=== PATIENT | male | born 1955 | race American Indian/Alaskan Native ===

== ENCOUNTER 2017-05-04 21:55 | Emergency (ER) | payer OTHER ==
[2017-05-04 22:34] LABS: Basophils % (Auto) 0.4 % (0.0-1.8); Eosinophils # (Auto) 0.1 K/mm3 (0.0-0.4); Eosinophils % (Auto) 1.5 % (0.0-4.3); Hemoglobin 15.1 gm/dl (11.8-15.2); Lymphocytes # (Auto) 2.5 K/mm3 (1.2-5.4); Lymphocytes % (Auto) 44.8 % (13.4-35.0); Mean Corpuscular HGB Conc 34 % (32-34); Mean Corpuscular Hemoglobin 31 pg (28-32); Mean Corpuscular Volume 94 fl (84-94); Monocytes # (Auto) 0.7 K/mm3 (0.0-0.8); Monocytes % (Auto) 12.2 % (0.0-7.3); Platelet Count 174 K/mm3 (140-440); Red Blood Count 4.81 M/mm3 (3.65-5.03); Red Cell Distribution Width 14.3 % (13.2-15.2)
[2017-05-04 22:53] LABS: Alanine Aminotransferase 24 units/L (7-56); Albumin 4.1 g/dL (3.9-5); BUN/Creatinine Ratio 15; Blood Urea Nitrogen 17 mg/dL (9-20); Calcium 9.2 mg/dL (8.4-10.2); Hemolysis Index 6
--- NOTE | 2017-05-05 00:29 | XRay Report ---
FINAL REPORT PROCEDURE: XR KNEE 3V LT TECHNIQUE: LEFT knee radiographs, AP, lateral and oblique views. CPT 32681 HISTORY: knee injury COMPARISON: No prior studies are available for comparison. FINDINGS: Fracture (s) and/or Dislocation(s): None . Alignment: Normal . Joint space(s): Mild narrowing of the joint spaces. Moderate spur formation off the osseous structures.. Soft tissues: Normal . Bone mineralization: Normal . Foreign bodies: None . IMPRESSION: No evidence of an acute fracture. Moderate arthritis.
[2017-05-05] MEDS ORDERED: TYLENOL PO ONE (12:03)
[2017-05-05] MEDS ORDERED: NAPROSYN PO ONE (13:00)
--- NOTE | 2017-05-05 13:23 | Emergency Department Report ---
ED General Adult HPI - General Chief complaint: Extremity Problem,Nontraumatic Stated complaint: FALL,LEFT KNEE PAIN Time Seen by Provider: 05/05/17 11:53 Source: patient Mode of arrival: Ambulatory Limitations: No Limitations - History of Present Illness Initial comments: Pt is a 61M no significant pmhx who presents with left knee pain that occurred last week. Pt is stating that his knee pain is a 7/10 that pain walking makes the pain worse and resting makes it better. Patient fell and was able to walk without any difficulty. Patient states that pain was gradual. Pt states that the reason that he is in the emergency department today is to "See what's going on." Because he sometimes has pain but he has been ambulatory without any assistance. Severity scale (0 -10): 7 - Related Data Previous Rx's Medication Instructions Recorded Last Taken Type Diclofenac Sodium [Voltaren] 100 gm TP Q6H PRN #1 gel..gram. 05/05/17 Unknown Rx Allergies Allergy/AdvReac Type Severity Reaction Status Date / Time No Known Allergies Allergy Verified 05/04/17 22:09 ED Review of Systems ROS: Stated complaint: FALL,LEFT KNEE PAIN Other details as noted in HPI Constitutional: denies: chills, fever Eyes: denies: eye pain, eye discharge, vision change ENT: denies: ear pain, throat pain Respiratory: denies: cough, shortness of breath, wheezing Cardiovascular: denies: chest pain, palpitations Endocrine: no symptoms reported Gastrointestinal: denies: abdominal pain, nausea, diarrhea Genitourinary: denies: urgency, dysuria Musculoskeletal: other (knee pain ). denies: back pain, joint swelling, arthralgia Skin: denies: rash, lesions Neurological: denies: headache, weakness, paresthesias Psychiatric: denies: anxiety, depression Hematological/Lymphatic: denies: easy bleeding, easy bruising ED Past Medical Hx - Past Medical History Previous Medical History?: No - Surgical History Past Surgical History?: No - Social History Smoking Status: Current Every Day Smoker Substance Use Type: None - Medications Home Medications: Home Medications Medication Instructions Recorded Confirmed Last Taken Type Diclofenac Sodium [Voltaren] 100 gm TP Q6H PRN #1 gel..gram. 05/05/17 Unknown Rx ED Physical Exam - General Limitations: No Limitations General appearance: alert, in no apparent distress - Head Head exam: Present: atraumatic, normocephalic - Eye Eye exam: Present: normal appearance - ENT ENT exam: Present: mucous membranes moist - Neck Neck exam: Present: normal inspection - Respiratory Respiratory exam: Present: normal lung sounds bilaterally. Absent: respiratory distress - Cardiovascular Cardiovascular Exam: Present: regular rate, normal rhythm. Absent: systolic murmur, diastolic murmur, rubs, gallop - GI/Abdominal GI/Abdominal exam: Present: soft, normal bowel sounds - Rectal Rectal exam: Present: deferred - Extremities Exam Extremities exam: Present: normal inspection, other (no point tenderness ) - Back Exam Back exam: Present: normal inspection - Neurological Exam Neurological exam: Present: alert, oriented X3 - Psychiatric Psychiatric exam: Present: normal affect, normal mood - Skin Skin exam: Present: warm, dry, intact, normal color. Absent: rash ED Course Vital Signs 05/04/17 05/05/17 05/05/17 22:09 12:00 12:21 Temperature 99.5 F 98.5 F Pulse Rate 86 72 Respiratory 16 20 20 Rate Blood Pressure 176/98 Blood Pressure 171/106 [Left] Blood Pressure 186/106 [Right] O2 Sat by Pulse 98 99 99 Oximetry ED Medical Decision Making - Lab Data Result diagrams: 05/04/17 22:15 05/04/17 22:15 Lab Results 05/04/17 05/04/17 Range/Units 22:15 22:15 WBC 5.6 (4.5-11.0) K/mm3 RBC 4.81 (3.65-5.03) M/mm3 Hgb 15.1 (11.8-15.2) gm/dl Hct 45.0 (35.5-45.6) % MCV 94 (84-94) fl MCH 31 (28-32) pg MCHC 34 (32-34) % RDW 14.3 (13.2-15.2) % Plt Count 174 (140-440) K/mm3 Lymph % (Auto) 44.8 H (13.4-35.0) % [place] % (Auto) 12.2 H (0.0-7.3) % Eos % (Auto) 1.5 (0.0-4.3) % Baso % (Auto) 0.4 (0.0-1.8) % Lymph # 2.5 (1.2-5.4) K/mm3 [place] # 0.7 (0.0-0.8) K/mm3 Eos # 0.1 (0.0-0.4) K/mm3 Baso # 0.0 (0.0-0.1) K/mm3 Seg Neutrophils % 41.1 (40.0-70.0) % Seg Neutrophils # 2.3 (1.8-7.7) K/mm3 Sodium 140 (137-145) mmol/L Potassium 4.2 (3.6-5.0) mmol/L Chloride 100.6 (98-107) mmol/L Carbon Dioxide 29 (22-30) mmol/L Anion Gap 15 mmol/L BUN 17 (9-20) mg/dL Creatinine 1.1 (0.8-1.5) mg/dL Estimated GFR > 60 ml/min BUN/Creatinine Ratio 15 % Glucose 94 (75-100) mg/dL Calcium 9.2 (8.4-10.2) mg/dL Total Bilirubin 0.30 (0.1-1.2) mg/dL AST 19 (5-40) units/L ALT 24 (7-56) units/L Alkaline Phosphatase 82 (35-129) units/L Total Protein 6.9 (6.3-8.2) g/dL Albumin 4.1 (3.9-5) g/dL Albumin/Globulin Ratio 1.5 % - Radiology Data Radiology results: report reviewed, image reviewed Left Knee xray: shows no acute osseous injury - Medical Decision Making Cdx: patella fracture ddx: ACL sprain, Quadraceps tendon sprain I will get blood work, xray of knee and pain medication. Patient's xray and blood work is unremarkable I will send patient home to f/u with PCP and will wrap pt's knee with an leora bandage. Discussed plan with patient and patient agrees with plan additional verbal discharge instructions were given. Critical care attestation.: If time is entered above; I have spent that time in minutes in the direct care of this critically ill patient, excluding procedure time. ED Disposition Clinical Impression: Knee pain Qualifiers: Chronicity: acute Laterality: left Qualified Code(s): M25.562 - Pain in left knee Disposition: - TO HOME OR SELFCARE Is pt being admited?: No Does the pt Need Aspirin: No Condition: Stable Prescriptions: Diclofenac Sodium [Voltaren] 100 gm TP Q6H PRN #1 gel..gram. PRN Reason: Pain Referrals: PRIMARY CARE,MD [Primary Care Provider] - 3-5 Days
[2017-05-05 13:47] VITALS: BP 168/109
== END 2017-05-05 13:44 | disposition home or self-care (01) ==
LOC: ED 21:55
DX: M25.562 Pain in left knee (principal); F17.200 Nicotine dependence, unspecified, uncomplicated
CPT/HCPCS: 36415; 80053; 85025; 99284

== ENCOUNTER 2019-02-06 23:49 | Inpatient (IN) | payer MEDICARE ==
[2019-02-07 00:29] LABS: Basophils # (Auto) 0.1 K/mm3 (0.0-0.1); Hematocrit 34.8 % (35.5-45.6); Hemoglobin 11.8 gm/dl (11.8-15.2); Lymphocytes # (Auto) 0.9 K/mm3 (1.2-5.4); Lymphocytes % (Auto) 13.7 % (13.4-35.0); Mean Corpuscular HGB Conc 34 % (32-34); Mean Corpuscular Volume 91 fl (84-94); Monocytes # (Auto) 0.8 K/mm3 (0.0-0.8); Monocytes % (Auto) 11.8 % (0.0-7.3); Platelet Count 207 K/mm3 (140-440); Red Blood Count 3.81 M/mm3 (3.65-5.03); Red Cell Distribution Width 14.2 % (13.2-15.2)
[2019-02-07 00:49] LABS: Calcium 8.2 mg/dL (8.4-10.2)
--- NOTE | 2019-02-07 02:02 | XRay Report ---
CHEST 1 VIEW INDICATION / CLINICAL INFORMATION: dyspnea. COMPARISON: None available. FINDINGS: SUPPORT DEVICES: None. HEART / MEDIASTINUM: Heart size is normal with left ventricular configuration. The thoracic aorta is slightly tortuous. LUNGS / PLEURA: No significant pulmonary or pleural abnormality. No pneumothorax. ADDITIONAL FINDINGS: No significant additional findings. IMPRESSION: 1. No acute findings. Signer Name: George Arreola MD Signed: 02/07/2019 1:58 AM Workstation Name: [id number]
[2019-02-07 02:03] LABS: Bilirubin,Urine NEG (Negative); Blood,Urine LG (Negative); Color,Urine Yellow (Yellow); Mucus,Urine FEW /HPF; Protein,Urine <15 mg/dL mg/dL (Negative); Urobilinogen,Urine < 2.0 mg/dL (<2.0)
--- NOTE | 2019-02-07 02:21 | Emergency Department Report ---
ED Male HPI - General Chief complaint: Urogenital-Male Stated complaint: UNABLE TO URINATE/BURNING PAIN Source: patient Mode of arrival: Ambulatory Limitations: No Limitations - History of Present Illness Initial comments: Patient is a 63-year-old -[place] male with a history of hypertension and BPH and status post prostate biopsy by Dr. Bhatt 5 days ago who presents to the ED with component of acute onset persistent severe suprapubic pressure and urinary retention for the last 8 hours. Patient states that he tried to void naturally but was unable to, and has had just small dribbles of urine. Patient states that the suprapubic pressure has worsened in the last 6 hours. Patient also complains of persistent elevated blood pressure for the last 8 hours. Patient states that he has been taking blood pressure medication before 2 months having being diagnosed with hypertension at an urgent care clinic 2 months ago. Patient denies chest pain, shortness of breath, dizziness, headache, syncope, change in vision, abdominal pain, dysuria, hematuria, fever, chills, cough, diarrhea, change in vision or headache MD Complaint: other (Pelvic pressure; urinary retention) -: Sudden, hour(s) (8) Location: abdomen (suprapubic pressure) Radiation: none Severity: severe Severity scale (0 -10): 7 Quality: other (pressure) Consistency: constant Improves with: none Worsens with: none recent surgery (Suprapubic pressure) urinary retention, other (suprapubic pressure) - Related Data Sexually active: No Home Medications Medication Instructions Recorded Confirmed Last Taken Tamsulosin [Flomax] 1 tab PO DAILY 02/07/19 02/07/19 Unknown Allergies Allergy/AdvReac Type Severity Reaction Status Date / Time No Known Allergies Allergy Verified 05/04/17 22:09 ED Review of Systems ROS: Stated complaint: UNABLE TO URINATE/BURNING PAIN Other details as noted in HPI Constitutional: denies: chills, fever Eyes: denies: eye pain, eye discharge, vision change ENT: denies: ear pain, throat pain Respiratory: denies: cough, shortness of breath, wheezing Cardiovascular: denies: chest pain, palpitations Endocrine: no symptoms reported Gastrointestinal: abdominal pain (suprapubic pressure). denies: nausea, vomiting, diarrhea, constipation, hematemesis Genitourinary: other (urinary retention). denies: urgency, dysuria Musculoskeletal: denies: back pain, joint swelling, arthralgia Skin: denies: rash, lesions Neurological: denies: headache, weakness, paresthesias Psychiatric: denies: anxiety, depression Hematological/Lymphatic: denies: easy bleeding, easy bruising ED Past Medical Hx - Past Medical History Previous Medical History?: Yes Hx Hypertension: Yes - Surgical History Past Surgical History?: Yes Additional Surgical History: Prostate biopsy - Social History Smoking Status: Never Smoker - Medications Home Medications: Home Medications Medication Instructions Recorded Confirmed Last Taken Type Tamsulosin [Flomax] 1 tab PO DAILY 02/07/19 02/07/19 Unknown History ED Physical Exam - General Limitations: No Limitations General appearance: alert, in no apparent distress - Head Head exam: Present: atraumatic, normocephalic, normal inspection - Eye Eye exam: Present: normal appearance, PERRL, EOMI Pupils: Present: normal accommodation - ENT ENT exam: Present: normal exam, normal orophraynx, mucous membranes moist, TM's normal bilaterally, normal external ear exam - Neck Neck exam: Present: normal inspection, full ROM - Respiratory Respiratory exam: Present: normal lung sounds bilaterally. Absent: respiratory distress, wheezes, rales, chest wall tenderness, accessory muscle use, prolonged expiratory - Cardiovascular Cardiovascular Exam: Present: regular rate, normal rhythm, normal heart sounds. Absent: systolic murmur, diastolic murmur, rubs, gallop - GI/Abdominal GI/Abdominal exam: Present: soft, tenderness (Suprapubic pressure), normal bowel sounds. Absent: guarding, rebound, hyperactive bowel sounds, hypoactive bowel sounds, organomegaly - Rectal Rectal exam: Present: deferred - Extremities Exam Extremities exam: Present: normal inspection, full ROM, normal capillary refill - Back Exam Back exam: Present: normal inspection, full ROM. Absent: CVA tenderness (L), muscle spasm, paraspinal tenderness - Neurological Exam Neurological exam: Present: alert, oriented X3, CN II-XII intact, normal gait, reflexes normal - Psychiatric Psychiatric exam: Present: normal affect, normal mood - Skin Skin exam: Present: warm, dry, intact, normal color. Absent: rash ED Course Vital Signs 02/06/19 02/07/19 02/07/19 23:56 01:41 03:20 Temperature 98.8 F 98.2 F Pulse Rate 93 H 99 H 93 H Respiratory 18 13 21 Rate Blood Pressure 177/93 198/133 Blood Pressure 202/106 198/133 [Left] O2 Sat by Pulse 99 99 97 Oximetry - Reevaluation(s) Reevaluation #1: 02/07/19 03:21 This is a 63-year-old male with a history of hypertension and BPH who presented to the ED with acute urinary retention and elevated blood pressure. In the ED, patient is alert and oriented 3, anxious but in no acute distress. Initial lab test results showed BUN of 78 and creatinine of 14.4 and hyponatremia 131 mmol per liter. Chest x-ray shows no acute cardiopulmonary abnormalities or pneumonitis. A [place]l catheter was initially inserted and the patient to leave his retention. Initial urine output was 1900 mL. The patient case was discussed with the ED attending physician Dr. Otero who advised that the patient's Urologist Dr. Bhatt be paged. I discussed that the patient's case with Dr. Bhatt, his urologist who advised that the patient be admitted to the hospital for further evaluation. He suggested an Abdomen Pelvis CT scan w/o contrast be performed. The hospitalist physician on-call Dr. Sorensen was also paged and he admitted the patient into the hospital for further evaluation. The abdomen pelvis CT scan without contrast shows bilateral hydronephrosis most l ikely due to bladder outlet obstruction caused by enlargement of the prostate. It also shows pandiverticulosis as well as left perinephric retroperitoneal stranding may be on the basis of the hydronephrosis or possible nephritis/pyelonephritis. 02/07/19 03:28 ED Medical Decision Making - Lab Data Result diagrams: 02/07/19 00:13 02/07/19 00:13 - Radiology Data Radiology results: report reviewed, image reviewed Findings [facility] [address] [place] [address] Cat Scan Report Signed Patient: DARIEN LO MR#: [id number] : 1955 Acct:[id number] Age/Sex: 63 / M ADM Date: 02/06/19 Loc: ED Attending Dr: Ordering Physician: RIC WADSWORTH Date of Service: 02/07/19 Procedure(s): CT abdomen pelvis wo con Accession Number(s): [id number] cc: RIC WADSWORTH CT abdomen pelvis wo con INDICATION / CLINICAL INFORMATION: Pelvic pain. TECHNIQUE: All CT scans at this location are performed using CT dose reduction for ALARA by means of automated exposure control. COMPARISON: None available. FINDINGS: Limited lower thoracic images are negative. ABDOMEN: The gallbladder and biliary ductal structures are normal. Small cyst is seen in the right lobe of the liver. No other hepatic abnormality. The spleen and pancreas are normal. Both adrenal glands are slightly prominent without discrete mass. There is bilateral hydronephrosis and dilatation of both ureters. Perinephric stranding is noted around the left kidney. Diverticulosis of both right and left colon is seen without evidence of diverticulitis. Pelvis: The prostate gland is markedly enlarged. A [place]l catheter is positioned within the urinary bladder. Urinary bladder wall is thickened. No evidence of ureteral or bladder calculi. No blastic or osteolytic lesions. IMPRESSION: 1. Bilateral hydronephrosis most likely due to bladder outlet obstruction caused by enlargement of the prostate. 2. Pandiverticulosis. 3. Left perinephric retroperitoneal stranding may be on the basis of the hydronephrosis or possible nephritis/pyelonephritis. Signer Name: George Arreola MD Signed: 02/07/2019 3:00 AM Workstation Name: [id number] Transcribed By: ROSSY Dictated By: George Arreola MD Electronically Authenticated By: George Arreola MD Signed Date/Time: 02/07/19299 DD/ 0254 TD/TT: - Medical Decision Making This is a 63-year-old male with a history of hypertension and BPH who presented to the ED with acute urinary retention and elevated blood pressure. In the ED, patient is alert and oriented 3, anxious but in no acute distress. Initial lab test results showed BUN of 78 and creatinine of 14.4 and hyponatremia 131 mmol per liter. Chest x-ray shows no acute cardiopulmonary abnormalities or pneumonitis. A [place]l catheter was initially inserted and the patient to leave his retention. Initial urine output was 1900 mL. The patient case was discussed with the ED attending physician Dr. Otero who advised that the patient's Urologist Dr. Bhatt be paged. I discussed that the patient's case with Dr. Bhatt, his urologist who advised that the patient be admitted to the hospital for further evaluation. He suggested an Abdomen Pelvis CT scan w/o contrast be performed. The hospitalist physician on-call Dr. Sorensen was also paged and he admitted the patient into the hospital for further evaluation. The abdomen pelvis CT scan without contrast shows bilateral hydronephrosis most likely due to bladder outlet obstruction caused by enlargement of the prostate. It also shows pandiverticulosis as well as left perinephric retroperitoneal stranding may be on the basis of the hydronephrosis or possible nephritis/pyelonephritis. - Differential Diagnosis Urinary retention; Acute Renal Failure; Hypertensive Emergency Critical care attestation.: If time is entered above; I have spent that time in minutes in the direct care of this critically ill patient, excluding procedure time. ED Disposition Clinical Impression: Acute urinary retention, Hypertensive emergency Acute renal failure (ARF) Qualifiers: Acute renal failure type: unspecified Qualified Code(s): N17.9 - Acute kidney failure, unspecified Disposition: OP ADMIT IP TO THIS HOSP Is pt being admited?: Yes Does the pt Need Aspirin: Yes Condition: Stable Instructions: Hypertension (ED) Time of Disposition: 02:38 Print Language: SLOVAK
[2019-02-07] MEDS ORDERED: MORPHINE IV PRN (02:39)
[2019-02-07] MEDS ORDERED: SODIUM CHLORIDE FLUSH SYRINGE 10 ML IV PRN (02:39)
[2019-02-07] MEDS ORDERED: TYLENOL PO PRN (02:39)
[2019-02-07] MEDS ORDERED: ZOFRAN IV PRN (02:39)
[2019-02-07] MEDS ORDERED: ASPIRIN PO ONE (02:47)
--- NOTE | 2019-02-07 02:49 | History and Physical Report ---
History of Present Illness Date of examination: 02/07/19 Date of admission: 02/07/2019 Chief complaint: Pelvic pressure, urinary retention History of present illness: 63-year-old Sudanese Sudanese male with history of hypertension and BPH S/P prostate biopsy (02/02/19) who presents to [facility] ED with complaints of progressively worsening suprapubic pressure and urinary retention for the past day. Patient states that he had a prostate biopsy done on 02/02/19 by . He was given oral antibiotics and has completed the course of treatment. Post biopsy patient noticed he blood in his urine, which improved with each void, and was completely resolved by day 3. On Friday he was unable to void and was just having small drips of urine. Patient tried to press on his abdomen in hopes that it would help him to void. The suprapubic pain and pres sure continued to worsen and he called his urologist. He was advised to go to the ED for further evaluation and treatment. Patient states that he is been compliant with medications. Denies: chest pain, SOB, fever, chills, headache, dizziness, hematochezia, hematuria Past History Past Medical History: hypertension, other (BPH) Past Surgical History: Other (prostate biopsy) Social history: lives with family Family history: no significant family history Medications and Allergies Allergies Allergy/AdvReac Type Severity Reaction Status Date / Time No Known Allergies Allergy Verified 05/04/17 22:09 Home Medications Medication Instructions Recorded Confirmed Last Taken Type Tamsulosin [Flomax] 1 tab PO DAILY 02/07/19 02/07/19 Unknown History Active Meds: Active Medications Acetaminophen (Tylenol) 650 mg PO Q4H PRN PRN Reason: Pain MILD(1-3)/Fever >100.5/STEARNS Enoxaparin Sodium (Lovenox) 40 mg SUB-Q QDAY DYLAN Morphine Sulfate (Morphine) 2 mg IV Q4H PRN PRN Reason: Pain, Moderate (4-6) Ondansetron HCl (Zofran) 4 mg IV Q6H PRN PRN Reason: Nausea And Vomiting Sodium Chloride (Sodium Chloride Flush Syringe 10 Ml) 10 ml IV BID DYLAN Sodium Chloride (Sodium Chloride Flush Syringe 10 Ml) 10 ml IV PRN PRN PRN Reason: LINE FLUSH Review of Systems All systems: negative Cardiovascular: high blood pressure, leg edema Genitourinary Male: urinary retention, other (suprapubic pressure) Exam - Physical Exam Narrative exam: Physical exam General appearance: Present: No acute distress, alert and oriented 3, well developed, pleasant, adult -Sudanese male - EENT Eyes: Present: PERRL, EOM intact, ENT: hearing intact, normal dentition - Neck Neck: Present: supple, normal ROM - Respiratory Respiratory effort: Non-labored Respiratory: CTA - Cardiovascular Heart rate: 90 (bpm) Rhythm: SR Heart Sounds: Present: S1, S2 - Extremities Extremities: no ischemia, pulses intact, bilateral lower extremity 2+ pitting edema - Peripheral Assessment Peripheral Pulses: within normal limits - Abdominal General gastrointestinal: soft, slight tenderness to suprapubic area, normal bowel sounds - Integumentary Integumentary: Present: warm, dry, - Musculoskeletal Musculoskeletal: Able to move all extremities, normal gait -Neurological Neurological: CN II-XII grossly intact - Psychiatric Psychiatric: cooperative - Constitutional Vitals: Temp Pulse Resp BP Pulse Ox 98.2 F 99 H 13 202/106 99 02/07/19 01:41 02/07/19 01:41 02/07/19 01:41 02/07/19 01:41 02/07/19 01:41 Results - Labs CBC & Chem 7: 02/07/19 00:13 02/07/19 00:13 Labs: Laboratory Last Values WBC 6.8 K/mm3 (4.5-11.0) 02/07/19 00:13 RBC 3.81 M/mm3 (3.65-5.03) 02/07/19 00:13 Hgb 11.8 gm/dl (11.8-15.2) 02/07/19 00:13 Hct 34.8 % (35.5-45.6) L 02/07/19 00:13 MCV 91 fl (84-94) 02/07/19 00:13 MCH 31 pg (28-32) 02/07/19 00:13 MCHC 34 % (32-34) 02/07/19 00:13 RDW 14.2 % (13.2-15.2) 02/07/19 00:13 Plt Count 207 K/mm3 (140-440) 02/07/19 00:13 Lymph % (Auto) 13.7 % (13.4-35.0) 02/07/19 00:13 [place] % (Auto) 11.8 % (0.0-7.3) H 02/07/19 00:13 Eos % (Auto) 0.0 % (0.0-4.3) 02/07/19 00:13 Baso % (Auto) 1.0 % (0.0-1.8) 02/07/19 00:13 Lymph # 0.9 K/mm3 (1.2-5.4) L 02/07/19 00:13 [place] # 0.8 K/mm3 (0.0-0.8) 02/07/19 00:13 Eos # 0.0 K/mm3 (0.0-0.4) 02/07/19 00:13 Baso # 0.1 K/mm3 (0.0-0.1) 02/07/19 00:13 Seg Neutrophils % 73.5 % (40.0-70.0) H 02/07/19 00:13 Seg Neutrophils # 5.0 K/mm3 (1.8-7.7) 02/07/19 00:13 Sodium 131 mmol/L (137-145) L 02/07/19 00:13 Potassium 4.9 mmol/L (3.6-5.0) 02/07/19 00:13 Chloride 97.2 mmol/L (98-107) L 02/07/19 00:13 Carbon Dioxide 15 mmol/L (22-30) L 02/07/19 00:13 Anion Gap 24 mmol/L 02/07/19 00:13 BUN 78 mg/dL (9-20) H 02/07/19 00:13 Creatinine 14.4 mg/dL (0.8-1.5) H 02/07/19 00:13 Estimated GFR 4 ml/min 02/07/19 00:13 BUN/Creatinine Ratio 5 % 02/07/19 00:13 Glucose 101 mg/dL (75-100) H 02/07/19 00:13 Calcium 8.2 mg/dL (8.4-10.2) L 02/07/19 00:13 Total Bilirubin 0.30 mg/dL (0.1-1.2) 02/07/19 00:13 AST 17 units/L (5-40) 02/07/19 00:13 ALT 14 units/L (7-56) 02/07/19 00:13 Alkaline Phosphatase 67 units/L (35-129) 02/07/19 00:13 Total Protein 7.8 g/dL (6.3-8.2) 02/07/19 00:13 Albumin 4.0 g/dL (3.9-5) 02/07/19 00:13 Albumin/Globulin Ratio 1.1 % 02/07/19 00:13 Urine Color Yellow (Yellow) 02/07/19 Unknown Urine Turbidity Clear (Clear) 02/07/19 Unknown Urine pH 5.0 (5.0-7.0) 02/07/19 Unknown Ur Specific [place] 1.006 (1.003-1.030) 02/07/19 Unknown Urine Protein <15 mg/dl mg/dL (Negative) 02/07/19 Unknown Urine Glucose (UA) Neg mg/dL (Negative) 02/07/19 Unknown Urine Ketones Neg mg/dL (Negative) 02/07/19 Unknown Urine Blood Lg (Negative) 02/07/19 Unknown Urine Nitrite Neg (Negative) 02/07/19 Unknown Urine Bilirubin Neg (Negative) 02/07/19 Unknown Urine Urobilinogen < 2.0 mg/dL (<2.0) 02/07/19 Unknown Ur Leukocyte Esterase Tr (Negative) 02/07/19 Unknown Urine WBC (Auto) 4.0 /HPF (0.0-6.0) 02/07/19 Unknown Urine RBC (Auto) 4.0 /HPF (0.0-6.0) 02/07/19 Unknown U Epithel Cells (Auto) 1.0 /HPF (0-13.0) 02/07/19 Unknown Urine Mucus Few /HPF 02/07/19 Unknown - Imaging and Cardiology Imaging and Cardiology: CXR: CXR: FINDINGS: SUPPORT DEVICES: None. HEART / MEDIASTINUM: Heart size is normal with left ventricular configuration. The thoracic aorta is slightly tortuous. LUNGS / PLEURA: No significant pulmonary or pleural abnormality. No pneumothorax. ADDITIONAL FINDINGS: No significant additional findings. IMPRESSION: 1. No acute findings. CT Abdomen/Pelvis: FINDINGS: Limited lower thoracic images are negative. ABDOMEN: The gallbladder and biliary ductal structures are normal. Small cyst is seen in the right lobe of the liver. No other hepatic abnormality. The spleen and pancreas are normal. Both adrenal glands are slightly prominent without discrete mass. There is bilateral hydronephrosis and dilatation of both ureters. Perinephric stranding is noted around the left kidney. Diverticulosis of both right and left colon is seen without evidence of diverticulitis. Pelvis: The prostate gland is markedly enlarged. A [place]l catheter is positioned within the urinary bladder. Urinary bladder wall is thickened. No evidence of ureteral or bladder calculi. No blastic or osteolytic lesions. IMPRESSION: 1. Bilateral hydronephrosis most likely due to bladder outlet obstruction caused by enlargement of the prostate. 2. Pandiverticulosis. 3. Left perinephric retroperitoneal stranding may be on the basis of the hydronephrosis or possible nephritis/pyelonephritis. Assessment and Plan Assessment and plan: 63-year-old Sudanese Sudanese male with history of hypertension and BPH S/P prostate biopsy (02/02/19) who presents to [facility] ED with complaints of progressively worsening suprapubic pressure and urinary retention for the past day. Urinary retention -Hx BPH -CT Abdomen/Pelvis shows: Pandiverticulosis. Left perinephric retroperitoneal stranding may be on the basis of the hydronephrosis or possible nephritis/pyelonephritis. -S/P prostate biopsy 5 days ago -Chilel placed -Continue supportive care -Urology consulted Bilateral hydronephrosis -Seen on CT Abdomen/Pelvis -Likely secondary to urinary obstruction/attention -Urology consulted ANAI ?? Superimposed chronic kidney disease -Cr on admission 14.4 -Avoid nephrotoxin agents -Renal dose all meds -Nephrology consulted Hypertensive urgency -BP on admission 202/106 -Hx Hypertension -Continue to monitor BP -Start Norvasc -IV antihypertensive when necessary Hyponatremia -likely pseudohyponatremia secondary to volume overload -Mild -Continue to monitor for now DVT PPX -on Lovenox
--- NOTE | 2019-02-07 03:04 | Cat Scan Report ---
CT abdomen pelvis wo con INDICATION / CLINICAL INFORMATION: Pelvic pain. TECHNIQUE: All CT scans at this location are performed using CT dose reduction for ALARA by means of automated e xposure control. COMPARISON: None available. FINDINGS: Limited lower thoracic images are negative. ABDOMEN: The gallbladder and biliary ductal structures are normal. Small cyst is seen in the right lobe of the liver. No other hepatic abnormality. The spleen and pancreas are normal. Both adrenal glands are slightly prominent without discrete mass. There is bilateral hydronephrosis and dilatation of both ureters. Perinephric stranding is noted around the left kidney. Diverticulosis of both right and left colon is seen without evidence of diverticulitis. Pelvis: The prostate gland is markedly enlarged. A [place]l catheter is positioned within the urinary bladder. Urinary bladder wall is thickened. No evidence of ureteral or bladder calculi. No blastic or osteolytic lesions. IMPRESSION: 1. Bilateral hydronephrosis most likely due to bladder outlet obstruction caused by enlargement of th e prostate. 2. Pandiverticulosis. 3. Left perinephric retroperitoneal stranding may be on the basis of the hydronephrosis or possible n ephritis/pyelonephritis. Signer Name: George Arreola MD Signed: 02/07/2019 3:00 AM Workstation Name: [employer]
[2019-02-07] MEDS: APRESOLINE IV PRN ×3 (03:20→18:02)
[2019-02-07] MEDS ORDERED: NORVASC PO ONE (03:26)
[2019-02-07] MEDS: NACL 0.9% 1000 ML 1,000 ML IV SCH ×2 (04:59→16:04)
[2019-02-07] MEDS ORDERED: NACL 0.9% 1000 ML 1,000 ML IV ONE (05:18)
[2019-02-07 06:07] LABS: Basophils % (Auto) 0.6 % (0.0-1.8); Hematocrit 36.2 % (35.5-45.6); Hemoglobin 12.2 gm/dl (11.8-15.2); Lymphocytes # (Auto) 0.8 K/mm3 (1.2-5.4); Lymphocytes % (Auto) 9.7 % (13.4-35.0); Mean Corpuscular HGB Conc 34 % (32-34); Mean Corpuscular Volume 92 fl (84-94); Monocytes # (Auto) 0.7 K/mm3 (0.0-0.8); Monocytes % (Auto) 8.3 % (0.0-7.3); Platelet Count 231 K/mm3 (140-440); Red Blood Count 3.95 M/mm3 (3.65-5.03); Red Cell Distribution Width 14.3 % (13.2-15.2)
[2019-02-07] MEDS ORDERED: NACL 0.9% 1000 ML 1,000 ML ONE (06:18)
[2019-02-07] MEDS: SODIUM CHLORIDE FLUSH SYRINGE 10 ML IV SCH ×2 (09:34→21:58)
[2019-02-07] MEDS: LOVENOX SUB-Q SCH (09:34)
[2019-02-07] MEDS: FLOMAX PO SCH (09:34)
--- NOTE | 2019-02-07 09:42 | Consultation ---
History of Present Illness - Reason for Consult Consult date: 02/07/19 acute renal failure Requesting physician: JOAQUÍN CORREA - History of Present Illness Patient is a 63-year-old -Cymro male with a history of hypertension and BPH and status post prostate biopsy by Dr. Bhatt 5 days ago who presents to the ED with component of acute onset persistent severe suprapubic pressure and urinary retention for the last 8 hours. Patient states that he tried to void naturally but was unable to, and has had just small dribbles of urine. Patient states that the suprapubic pressure has worsened in the last 6 hours. Patient also complains of persistent elevated blood pressure for the last 8 hours. Patient states that he has been taking blood pressure medication before 2 months having being diagnosed with hypertension at an urgent care clinic 2 months ago. Patient denies chest pain, shortness of breath, dizziness, headache, syncope, change in vision, abdominal pain, dysuria, hematuria, fever, chills, cough, diarrhea, change in vision or headache MD Complaint: other (Pelvic pressure; urinary retention) -: Sudden, hour(s) (8) Location: abdomen (suprapubic pressure) Radiation: none Severity: severe Severity scale (0 -10): 7 Quality: other (pressure) Consistency: constant Improves with: none Worsens with: none recent surgery (Suprapubic pressure) urinary retention, other (suprapubic pressure) ROS: Stated complaint: UNABLE TO URINATE/BURNING PAIN Other details as noted in HPI Constitutional: denies: chills, fever Eyes: denies: eye pain, eye discharge, vision change ENT: denies: ear pain, throat pain Respiratory: denies: cough, shortness of breath, wheezing Cardiovascular: denies: chest pain, palpitations Endocrine: no symptoms reported Gastrointestinal: abdominal pain (suprapubic pressure). denies: nausea, vomiting, diarrhea, constipation, hematemesis Genitourinary: other (urinary retention). denies: urgency, dysuria Musculoskeletal: denies: back pain, joint swelling, arthralgia Skin: denies: rash, lesions Neurological: denies: headache, weakness, paresthesias Psychiatric: denies: anxiety, depression Hematological/Lymphatic: denies: easy bleeding, easy bruising - Past Medical History Previous Medical History?: Yes Hx Hypertension: Yes - Surgical History Past Surgical History?: Yes Additional Surgical History: Prostate biopsy - Social History Smoking Status: Never Smoker Past History Past Medical History: hypertension, other (BPH) Past Surgical History: Other (prostate biopsy) Social history: lives with family Family history: no significant family history Medications and Allergies Allergies Allergy/AdvReac Type Severity Reaction Status Date / Time No Known Allergies Allergy Verified 05/04/17 22:09 Home Medications Medication Instructions Recorded Confirmed Last Taken Type Tamsulosin [Flomax] 1 tab PO DAILY 02/07/19 02/07/19 Unknown History Active Meds: Active Medications Acetaminophen (Tylenol) 650 mg PO Q4H PRN PRN Reason: Pain MILD(1-3)/Fever >100.5/STEARNS Amlodipine Besylate (Norvasc) 10 mg PO QDAY [facility] Enoxaparin Sodium (Lovenox) 30 mg SUB-Q QDAY [facility] Last Admin: 02/07/19 09:34 Dose: 30 mg Documented by: Hydralazine HCl (Apresoline) 10 mg IV Q4HR PRN PRN Reason: Blood Pressure Last Admin: 02/07/19 09:40 Dose: 10 mg Documented by: Sodium Chloride (Nacl 0.9% 1000 Ml) 1,000 mls @ 125 mls/hr IV DIRECT [facility] Last Admin: 02/07/19 04:59 Dose: 75 mls/hr Documented by: Morphine Sulfate (Morphine) 2 mg IV Q4H PRN PRN Reason: Pain, Moderate (4-6) Ondansetron HCl (Zofran) 4 mg IV Q6H PRN PRN Reason: Nausea And Vomiting Sodium Chloride (Sodium Chloride Flush Syringe 10 Ml) 10 ml IV BID [facility] Last Admin: 02/07/19 09:34 Dose: 10 ml Documented by: Sodium Chloride (Sodium Chloride Flush Syringe 10 Ml) 10 ml IV PRN PRN PRN Reason: LINE FLUSH Tamsulosin HCl (Flomax) 0.4 mg PO DAILY [facility] Last Admin: 02/07/19 09:34 Dose: 0.4 mg Documented by: Exam - Vital Signs Vital signs: Vital Signs Temp Pulse Resp BP Pulse Ox 98.8 F 93 H 18 177/93 99 02/06/19 23:56 02/06/19 23:56 02/06/19 23:56 02/06/19 23:56 02/06/19 23:56 - Physical Exam Narrative exam: - General Limitations: No Limitations General appearance: alert, in no apparent distress - Head Head exam: Present: atraumatic, normocephalic, normal inspection - Eye Eye exam: Present: normal appearance, PERRL, EOMI Pupils: Present: normal accommodation - ENT ENT exam: Present: normal exam, normal orophraynx, mucous membranes moist, TM's normal bilaterally, normal external ear exam - Neck Neck exam: Present: normal inspection, full ROM - Respiratory Respiratory exam: Present: normal lung sounds bilaterally. Absent: respiratory distress, wheezes, rales, chest wall tenderness, accessory muscle use, prolonged expiratory - Cardiovascular Cardiovascular Exam: Present: regular rate, normal rhythm, normal heart sounds. Absent: systolic murmur, diastolic murmur, rubs, gallop - GI/Abdominal GI/Abdominal exam: Present: soft, tenderness (Suprapubic pressure), normal bowel sounds. Absent: guarding, rebound, hyperactive bowel sounds, hypoactive bowel sounds, organomegaly - Rectal Rectal exam: Present: deferred - Extremities Exam Extremities exam: Present: normal inspection, full ROM, normal capillary refill - Back Exam Back exam: Present: normal inspection, full ROM. Absent: CVA tenderness (L), muscle spasm, paraspinal tenderness - Neurological Exam Neurological exam: Present: alert, oriented X3, CN II-XII intact, normal gait, reflexes normal - Psychiatric Psychiatric exam: Present: normal affect, normal mood - Skin Skin exam: Present: warm, dry, intact, normal color. Absent: rash Additional exam: CT Abdomen/Pelvis: FINDINGS: Limited lower thoracic images are negative. ABDOMEN: The gallbladder and biliary ductal structures are normal. Small cyst is seen in the right lobe of the liver. No other hepatic abnormality. The spleen and pancreas are normal. Both adrenal glands are slightly prominent without discrete mass. There is bilateral hydronephrosis and dilatation of both ureters. Perinephric stranding is noted around the left kidney. Diverticulosis of both right and left colon is seen without evidence of diverticulitis. Pelvis: The prostate gland is markedly enlarged. A Vela catheter is positioned within the urinary bladder. Urinary bladder wall is thickened. No evidence of ureteral or bladder calculi. No blastic or osteolytic lesions. IMPRESSION: 1. Bilateral hydronephrosis most likely due to bladder outlet obstruction caused by enlargement of the prostate. 2. Pandiverticulosis. 3. Left perinephric retroperitoneal stranding may be on the basis of the hydronephrosis or possible nephritis/pyelonephritis. Results - Lab Results 02/07/19 05:49 02/07/19 00:13 Most recent lab results Calcium 8.2 mg/dL (8.4-10.2) L 02/07/19 00:13 - Image Kidney/bladder ultrasound: pending, report reviewed, image reviewed, other Assessment and Plan Impression: * ANAI * urinary retension * BPH * s/p prostate biopsy * metabolic acidosis * Bilateral hydronephrosis most likely due to bladder outlet obstruction * Left perinephric retroperitoneal stranding - possible nephritis/pyelonephritis Plan: * ivfs and iv abx * pyelo noted on ct scan, repeat in am to ensure hydronephrosis resolution * keep vela in place, q2hr bladder irragation * follow up lytes, monitor for improvement * rec urology consultation * strict i/os * daily lytes * add po sodium bicarb * no indication for security screener today * renal diet, avoid nephrotoxins
[2019-02-07] MEDS ORDERED: LOVENOX SUB-Q SCH (10:00)
[2019-02-07] MEDS: SODIUM BICARBONATE PO SCH ×2 (10:36→21:57)
[2019-02-07] MEDS: ROCEPHIN/NS 1 GM/50 ML 1 GM/50 ML BAG IV SCH (10:36)
[2019-02-07 11:21] LABS: Calcium 8.9 mg/dL (8.4-10.2)
--- NOTE | 2019-02-07 14:46 | Progress Note ---
Assessment and Plan Urinary retention - Due to BPH with urinary bladder outlet obstruction -CT Abdomen/Pelvis shows: Pandiverticulosis. Left perinephric retroperitoneal stranding may be on the basis of the hydronephrosis or possible nephritis/pyelonephritis. -S/P prostate biopsy 5 days ago -Chilel placed -Continue supportive care and monitor urine output -Urology consulted Bilateral hydronephrosis -Seen on CT Abdomen/Pelvis -Likely secondary to urinary obstruction/attention -Urology consulted ANAI ?? Superimposed chronic kidney disease -Cr on admission 14.4 -Avoid nephrotoxin agents -Renal dose all meds -Nephrology consulted - Continue IV fluids and monitor renal function Hypertensive urgency -BP on admission 202/106 -Hx Hypertension -Continue to monitor BP -Started on Norvasc, will also add metoprolol -IV antihypertensive when necessary Hyponatremia -likely pseudohyponatremia secondary to volume overload -Mild -Continue to monitor for now DVT PPX -on Lovenox Brief History: 63-year-old Ivorian Ivorian male with history of hypertension and BPH S/P prostate biopsy (02/02/19) who presents to [facility] ED with complaints of progressively worsening suprapubic pressure and urinary retention for the past day. Probably sorry about that. Radiological data: Chest x-ray: No acute findings Abdomen pelvis CT: Moderate bilateral hydronephrosis is essentially unchanged since yesterday's exam. The bladder is decompressed on today's exam and demonstrates diffuse wall thickening. Enlarged prostate. No obvious obstructing lesion in the distal ureters is demonstrated on noncontrast CT. Mild cardiomegaly. Hospitalist Physical exam: GENERAL: well-developed and well-nourished AAM lying on bed appeared to be in no discomfort. HEENT: Normocephalic. Atraumatic. No conjunctival congestion or icterus. Patient has moist mucous membranes. NECK: Supple. Trachea midline. CHEST/LUNGS: Clear to auscultated bilaterally, breathing nonlabored. No wheezes crackles or rhonchi. HEART/CARDIOVASCULAR: Regular in rate and rhythm. S1 and S2 positive. ABDOMEN: Abdomen is soft, nontender. Patient has normal bowel sounds. SKIN: There is no rash. Warm and dry. NEURO: No focal motor deficit. Follows command. MUSCULOSKELETAL: No joint effusion or tenderness. EXTRIMITY: No edema, no cyanosis or clubbing. PSYCH: Cooperative. Subjective Date of service: 02/07/19 Interval history: Patient seen and examined. Medical records and medication list reviewed. No acute event overnight noted by the RN. Patient denies any chest pain or difficulty breathing. Patient is tolerating diet. Discussed plan of care at bedside with patient. States his abdominal pain almost resolved now Objective - Constitutional Vitals: Vital Signs - 12hr 02/07/19 02/07/19 02/07/19 03:00 03:20 03:51 Temperature Pulse Rate 94 H 93 H 99 H Pulse Rate [ Apical] Pulse Rate [ Left Radial] Pulse Rate [ Right Radial] Respiratory 20 21 Rate Blood Pressure 205/119 198/133 221/127 Blood Pressure 198/133 [Left] O2 Sat by Pulse 97 97 Oximetry 02/07/19 02/07/19 02/07/19 03:55 04:00 05:00 Temperature Pulse Rate 100 H 100 H 102 H Pulse Rate [ Apical] Pulse Rate [ Left Radial] Pulse Rate [ Right Radial] Respiratory 18 23 19 Rate Blood Pressure 171/93 158/93 Blood Pressure 174/89 [Left] O2 Sat by Pulse 98 97 95 Oximetry 02/07/19 02/07/19 02/07/19 05:10 05:20 05:30 Temperature Pulse Rate 98 H 99 H 106 H Pulse Rate [ Apical] Pulse Rate [ Left Radial] Pulse Rate [ Right Radial] Respiratory 19 13 19 Rate Blood Pressure 158/93 158/93 158/93 Blood Pressure [Left] O2 Sat by Pulse 97 97 97 Oximetry 02/07/19 02/07/19 02/07/19 05:40 05:50 06:00 Temperature Pulse Rate 99 H 99 H 100 H Pulse Rate [ Apical] Pulse Rate [ Left Radial] Pulse Rate [ Right Radial] Respiratory 21 14 21 Rate Blood Pressure 158/93 158/93 Blood Pressure 167/88 [Left] O2 Sat by Pulse 97 97 97 Oximetry 02/07/19 02/07/19 02/07/19 06:40 07:05 07:40 Temperature 98.4 F 98.4 F Pulse Rate 104 H 103 H Pulse Rate [ 103 H Apical] Pulse Rate [ 103 H Left Radial] Pulse Rate [ 103 H Right Radial] Respiratory 20 19 18 Rate Blood Pressure 168/92 153/89 Blood Pressure [Left] O2 Sat by Pulse 100 99 96 Oximetry 02/07/19 02/07/19 02/07/19 09:18 09:40 10:00 Temperature Pulse Rate 103 H 103 H 60 Pulse Rate [ Apical] Pulse Rate [ Left Radial] Pulse Rate [ Right Radial] Respiratory Rate Blood Pressure 187/97 187/100 Blood Pressure [Left] O2 Sat by Pulse 99 Oximetry 02/07/19 02/07/19 11:45 12:00 Temperature 98.4 F 98.0 F Pulse Rate 104 H 102 H Pulse Rate [ Apical] Pulse Rate [ Left Radial] Pulse Rate [ Right Radial] Respiratory 18 19 Rate Blood Pressure 148/81 Blood Pressure 130/84 [Left] O2 Sat by Pulse 96 Oximetry - Labs CBC & Chem 7: 02/08/19 05:25 02/09/19 04:45 Labs: Abnormal lab results 02/07/19 02/07/19 02/07/19 Range/Units 00:13 00:13 05:49 Hct 34.8 L (35.5-45.6) % Lymph % (Auto) 9.7 L (13.4-35.0) % [place] % (Auto) 11.8 H 8.3 H (0.0-7.3) % Lymph # 0.9 L 0.8 L (1.2-5.4) K/mm3 Seg Neutrophils % 73.5 H 81.4 H (40.0-70.0) % Sodium 131 L (137-145) mmol/L Potassium (3.6-5.0) mmol/L Chloride 97.2 L (98-107) mmol/L Carbon Dioxide 15 L (22-30) mmol/L BUN 78 H (9-20) mg/dL Creatinine 14.4 H (0.8-1.5) mg/dL Glucose 101 H (75-100) mg/dL Calcium 8.2 L (8.4-10.2) mg/dL 02/07/19 Range/Units 10:16 Hct (35.5-45.6) % Lymph % (Auto) (13.4-35.0) % [place] % (Auto) (0.0-7.3) % Lymph # (1.2-5.4) K/mm3 Seg Neutrophils % (40.0-70.0) % Sodium (137-145) mmol/L Potassium 5.1 H (3.6-5.0) mmol/L Chloride (98-107) mmol/L Carbon Dioxide 16 L (22-30) mmol/L BUN 64 H (9-20) mg/dL Creatinine 10.5 H (0.8-1.5) mg/dL Glucose 101 H (75-100) mg/dL Calcium (8.4-10.2) mg/dL
[2019-02-07] MEDS: PROSCAR PO SCH (15:10)
[2019-02-07] MEDS: LOPRESSOR PO SCH (21:57)
[2019-02-08] MEDS: NACL 0.9% 1000 ML 1,000 ML IV SCH ×3 (01:40→21:42)
[2019-02-08 06:33] LABS: Basophils % (Auto) 0.5 % (0.0-1.8); Eosinophils % (Auto) 0.1 % (0.0-4.3); Hemoglobin 11.5 gm/dl (11.8-15.2); Lymphocytes % (Auto) 14.7 % (13.4-35.0); Mean Corpuscular HGB Conc 34 % (32-34); Mean Corpuscular Volume 92 fl (84-94); Monocytes % (Auto) 14.9 % (0.0-7.3); Platelet Count 219 K/mm3 (140-440); Red Blood Count 3.69 M/mm3 (3.65-5.03); Red Cell Distribution Width 14.4 % (13.2-15.2)
[2019-02-08 06:51] LABS: Calcium 8.6 mg/dL (8.4-10.2)
[2019-02-08] MEDS: LOVENOX SUB-Q SCH (09:08)
[2019-02-08] MEDS: PROSCAR PO SCH (09:09)
[2019-02-08] MEDS: SODIUM BICARBONATE PO SCH ×2 (09:09→21:40)
[2019-02-08] MEDS: SODIUM CHLORIDE FLUSH SYRINGE 10 ML IV SCH ×2 (09:09→21:40)
[2019-02-08] MEDS: FLOMAX PO SCH (09:09)
[2019-02-08] MEDS: LOPRESSOR PO SCH ×2 (09:09→21:40)
[2019-02-08] MEDS: NORVASC PO SCH (09:09)
[2019-02-08] MEDS: ROCEPHIN/NS 1 GM/50 ML 1 GM/50 ML BAG IV SCH (09:14)
--- NOTE | 2019-02-08 09:56 | Cat Scan Report ---
CT ABDOMEN AND PELVIS WITHOUT CONTRAST HISTORY: bilateral hydronephrosis and ureter, abd pain. COMPARISON: 02/07/2019. TECHNIQUE: Helical CT images of the abdomen and pelvis were obtained without administration of intrav enous contrast. Sagittal and coronal reformatted images were reviewed. All CT scans at this location are performed using CT dose reduction for ALARA by means of automated exposure control. FINDINGS: Abdomen/pelvis: Mild to moderate bilateral hydronephrosis appears unchanged since yesterday's exam. No obstructing lesion is identified in the distal ureters. The bladder is decompressed and contains a Chilel catheter. Diffuse bilateral thickening is again noted. The prostate gland is moderately enlarg ed measuring 6.7 cm in diameter. Liver, biliary system, pancreas, spleen and adrenal glands remain unremarkable. Mild diffuse thickeni ng of the adrenal gland is stable without discrete nodule. The aorta is mildly ectatic and contains s cattered calcifications. Scattered diverticula throughout the length of the colon is again noted. No evidence for bowel obstru ction or focal inflammation. Normal appendix. Lungs/bones: The visualized lung bases are adequately aerated. Mild cardiomegaly is stable. Mild thor acolumbar spondylosis. IMPRESSION: Moderate bilateral hydronephrosis is essentially unchanged since yesterday's exam. The bladder is dec ompressed on today's exam and demonstrates diffuse wall thickening. Enlarged prostate. No obvious obs tructing lesion in the distal ureters is demonstrated on noncontrast CT. Mild cardiomegaly. Signer Name: Brendon Becker Jr, MD Signed: 02/08/2019 9:51 AM Workstation Name: [id number]
--- NOTE | 2019-02-08 10:40 | Progress Note ---
Subjective Interval history: Patient was seen today for follow-up of multiple renal related issues No complaints of any chest pain pressure or shortness of breath Interdisciplinary notes that also reviewed Events of 24 hours vitals labs intake output medications were reviewed Past medical history: Reviewed Family history: Reviewed Social history: Reviewed Allergies: Reviewed Physical examination: Vitals: Reviewed HEENT: No pallor or icterus oral mucosa moist Neck: Supple no JVD no thyromegaly Chest: Bilateral clear to auscultation anteriorly Heart: Regular rate and rhythm S1-S2 heard no S3-S4 Abdomen: Soft nontender no voluntary guarding rigidity rebound Extremity: Dry skin less than 1+ peripheral edema Psychiatric: No evidence of agitation and aggression noted Dermatology: No petechial rashes Labs and x-rays: Reviewed from today Assessment and plan Acute kidney injury is status post mustard biopsy, urinary retention with his tory of prior benign prostatic hyperplasia Patient does have bilateral hydronephrosis due to bladder outlet obstruction Mild hyperkalemia to monitor and follow Metabolic acidosis requires correction slowly improving Remarkable improvement in renal function continue with Chilel catheter placement, Urinalysis shows low-grade pyuria hematuria large amount of blood and less than 15 mg protein in the urine Left perinephric retroperitoneal stranding likely resulting from obstructive uropathy,? Infection pyelonephritis Disc and obtained today shows evidence of bilateral hydronephrosis essentially unchanged bladder is decompressed Prostate is moderately enlarged Thickening of the adrenal gland will need follow-up in outpatient setting Patient was adequately counseled and educated regarding all the renal related issues Laboratory studies, pertinent for discussed with patient All questions were answered and simple Greek We'll continue to follow and make recommendation for renal standpoint Objective - Vital Signs Vital signs: Vital Signs - 12hr 02/08/19 02/08/19 02/08/19 00:01 01:00 03:18 Temperature 98.0 F 98.0 F Pulse Rate 75 75 78 Respiratory 18 18 Rate Blood Pressure 140/85 139/84 O2 Sat by Pulse 99 99 Oximetry 02/08/19 02/08/19 04:31 08:07 Temperature Pulse Rate 77 83 Respiratory Rate Blood Pressure O2 Sat by Pulse 97 Oximetry - Lab 02/08/19 05:25 02/08/19 05:25 Most recent lab results Calcium 8.6 mg/dL (8.4-10.2) 02/08/19 05:25 Medications & Allergies - Medications Allergies/Adverse Reactions: Allergies No Known Allergies Allergy (Verified 05/04/17 22:09) Home Medications: Home Medications Medication Instructions Recorded Confirmed Last Taken Type Tamsulosin [Flomax] 1 tab PO DAILY 02/07/19 02/07/19 Unknown History Active Medications: Generic Name Dose Route Start Last Admin Trade Name Freq PRN Reason Stop Dose Admin Acetaminophen 650 mg 02/07/19 02:39 Tylenol PO Q4H PRN Pain MILD(1-3)/Fever >100.5/STEARNS Amlodipine Besylate 10 mg 02/08/19 10:00 02/08/19 09:09 Norvasc PO 10 mg QDAY DYLAN Administration Enoxaparin Sodium 30 mg 02/07/19 10:00 02/08/19 09:08 Lovenox SUB-Q 30 mg QDAY DYLAN Administration Finasteride 5 mg 02/07/19 15:00 02/08/19 09:09 Proscar PO 5 mg QDAY DYLAN Administration Hydralazine HCl 10 mg 02/07/19 02:50 02/07/19 18:02 Apresoline IV 10 mg Q4HR PRN Administration Blood Pressure Sodium Chloride 1,000 mls @ 125 mls/hr 02/07/19 05:00 02/08/19 09:06 Nacl 0.9% 1000 Ml IV 125 mls/hr DIRECT DYLAN Administration Ceftriaxone Sodium 1 gm in 50 mls @ 100 mls/hr 02/07/19 10:00 02/08/19 09:14 Rocephin/Ns 1 Gm/50 Ml IV 100 mls/hr Q24HR DYLAN Administration Protocol Metoprolol Tartrate 50 mg 02/07/19 22:00 02/08/19 09:09 Lopressor PO 50 mg BID DYLAN Administration Morphine Sulfate 2 mg 02/07/19 02:39 Morphine IV Q4H PRN Pain, Moderate (4-6) Ondansetron HCl 4 mg 02/07/19 02:39 Zofran IV Q6H PRN Nausea And Vomiting Sodium Bicarbonate 1,300 mg 02/07/19 10:00 02/08/19 09:09 Sodium Bicarbonate PO 1,300 mg BID DYLAN Administration Sodium Chloride 10 ml 02/07/19 10:00 02/08/19 09:09 Sodium Chloride Flush Syringe 10 Ml IV 10 ml BID DYLAN Administration Sodium Chloride 10 ml 10/13/19 02:39 Sodium Chloride Flush Syringe 10 Ml IV PRN PRN LINE FLUSH Tamsulosin HCl 0.4 mg 02/07/19 10:00 02/08/19 09:09 Flomax PO 0.4 mg DAILY DYLAN Administration
--- NOTE | 2019-02-08 14:59 | Progress Note ---
Assessment and Plan Hematuria, continue to monitor - Follow H&H Urinary retention - Due to BPH with urinary bladder outlet obstruction -CT Abdomen/Pelvis shows: Pandiverticulosis. Left perinephric retroperitoneal stranding may be on the basis of the hydronephrosis or possible nephritis/pyelonephritis. -S/P prostate biopsy 5 days ago -Chilel placed, patient also on Flomax -Continue supportive care and monitor urine output -Urology consulted - recommended to continue current management Bilateral hydronephrosis -Seen on CT Abdomen/Pelvis -Likely secondary to urinary obstruction/attention -Urology consulted -medical management for now with Chilel ANAI, due to obstructive nephropathy - renal function improving ?? Superimposed chronic kidney disease -Cr on admission 14.4 -Avoid nephrotoxin agents -Renal dose all meds -Nephrology consulted - Continue IV fluids and monitor renal function Hypertensive urgency -BP on admission 202/106 -Hx Hypertension -Continue to monitor BP -Started on Norvasc and metoprolol, IV antihypertensive when necessary - Continue to adjust medications as needed Hyponatremia -likely pseudohyponatremia secondary to volume overload -Mild -Continue to monitor for now DVT PPX -on Lovenox Disposition: Home when renal function stabilizes and blood pressure improves Brief History: 63-year-old [place] Uzbek male with history of hypertension and BPH S/P prostate biopsy (02/02/19) who presents to [facility] ED with complaints of progressively worsening suprapubic pressure and urinary retention for the past day. Radiological data: Chest x-ray: No acute findings Abdomen pelvis CT: Moderate bilateral hydronephrosis is essentially unchanged since yesterday's exam. The bladder is decompressed on today's exam and demonstrates diffuse wall thickening. Enlarged prostate. No obvious obstructing lesion in the distal ureters is demonstrated on noncontrast CT. Mild cardiomegaly. Hospitalist Physical exam: GENERAL: well-developed and well-nourished AAM lying on bed appeared to be in no discomfort. HEENT: Normocephalic. Atraumatic. No conjunctival congestion or icterus. Patient has moist mucous membranes. NECK: Supple. Trachea midline. CHEST/LUNGS: Clear to auscultated bilaterally, breathing nonlabored. No wheezes crackles or rhonchi. HEART/CARDIOVASCULAR: Regular in rate and rhythm. S1 and S2 positive. ABDOMEN: Abdomen is soft, nontender. Patient has normal bowel sounds. SKIN: There is no rash. Warm and dry. NEURO: No focal motor deficit. Follows command. MUSCULOSKELETAL: No joint effusion or tenderness. EXTRIMITY: No edema, no cyanosis or clubbing. PSYCH: Cooperative. Subjective Date of service: 02/08/19 Interval history: Patient seen and examined. Medical records and medication list reviewed. No acute event overnight noted by the RN. Patient denies any chest pain or difficulty breathing. Patient is tolerating diet. Discussed plan of care at bedside with patient. Noted mild hematuria Objective - Constitutional Vitals: Vital Signs - 12hr 02/08/19 02/08/19 02/08/19 03:18 04:31 08:07 Temperature 98.0 F Pulse Rate 78 77 83 Respiratory 18 Rate Blood Pressure 139/84 O2 Sat by Pulse 99 97 Oximetry 02/08/19 02/08/19 11:24 12:00 Temperature 98.3 F Pulse Rate 70 76 Respiratory 18 Rate Blood Pressure 154/92 O2 Sat by Pulse 98 Oximetry - Labs CBC & Chem 7: 02/08/19 05:25 02/09/19 04:45 Labs: Abnormal lab results 02/08/19 02/08/19 Range/Units 05:25 05:25 Hgb 11.5 L (11.8-15.2) gm/dl Hct 34.0 L (35.5-45.6) % Gem % (Auto) 14.9 H (0.0-7.3) % Lymph # 1.0 L (1.2-5.4) K/mm3 Gem # 1.0 H (0.0-0.8) K/mm3 Potassium 5.6 H (3.6-5.0) mmol/L Chloride 113.4 H (98-107) mmol/L Carbon Dioxide 19 L (22-30) mmol/L BUN 42 H (9-20) mg/dL Creatinine 6.2 H (0.8-1.5) mg/dL Glucose 111 H (75-100) mg/dL
[2019-02-09] MEDS: APRESOLINE IV PRN (03:59)
--- NOTE | 2019-02-09 05:05 | Consultation ---
History of Present Illness - Reason for Consult Consult date: 02/08/19 Past History Past Medical History: hypertension, other (BPH) Past Surgical History: Other (prostate biopsy) Social history: lives with family Family history: no significant family history Medications and Allergies Allergies Allergy/AdvReac Type Severity Reaction Status Date / Time No Known Allergies Allergy Verified 05/04/17 22:09 Home Medications Medication Instructions Recorded Confirmed Last Taken Type Tamsulosin [Flomax] 1 tab PO DAILY 02/07/19 02/07/19 Unknown History Active Meds: Active Medications Acetaminophen (Tylenol) 650 mg PO Q4H PRN PRN Reason: Pain MILD(1-3)/Fever >100.5/STEARNS Amlodipine Besylate (Norvasc) 10 mg PO QDAY [facility] Last Admin: 02/08/19 09:09 Dose: 10 mg Documented by: Enoxaparin Sodium (Lovenox) 30 mg SUB-Q QDAY [facility] Last Admin: 02/08/19 09:08 Dose: 30 mg Documented by: Finasteride (Proscar) 5 mg PO QDAY [facility] Last Admin: 02/08/19 09:09 Dose: 5 mg Documented by: Hydralazine HCl (Apresoline) 10 mg IV Q4HR PRN PRN Reason: Blood Pressure Last Admin: 02/09/19 03:59 Dose: 10 mg Documented by: Sodium Chloride (Nacl 0.9% 1000 Ml) 1,000 mls @ 125 mls/hr IV DIRECT [facility] Last Admin: 02/08/19 21:42 Dose: 125 mls/hr Documented by: Ceftriaxone Sodium (Rocephin/Ns 1 Gm/50 Ml) 1 gm in 50 mls @ 100 mls/hr IV Q24HR [facility]; Protocol Last Admin: 02/08/19 09:14 Dose: 100 mls/hr Documented by: Metoprolol Tartrate (Lopressor) 50 mg PO BID [facility] Last Admin: 02/08/19 21:40 Dose: 50 mg Documented by: Morphine Sulfate (Morphine) 2 mg IV Q4H PRN PRN Reason: Pain, Moderate (4-6) Ondansetron HCl (Zofran) 4 mg IV Q6H PRN PRN Reason: Nausea And Vomiting Sodium Bicarbonate (Sodium Bicarbonate) 1,300 mg PO BID [facility] Last Admin: 02/08/19 21:40 Dose: 1,300 mg Documented by: Sodium Chloride (Sodium Chloride Flush Syringe 10 Ml) 10 ml IV BID [facility] Last Admin: 02/08/19 21:40 Dose: 10 ml Documented by: Sodium Chloride (Sodium Chloride Flush Syringe 10 Ml) 10 ml IV PRN PRN PRN Reason: LINE FLUSH Tamsulosin HCl (Flomax) 0.4 mg PO DAILY [facility] Last Admin: 02/08/19 09:09 Dose: 0.4 mg Documented by: Exam - Constitutional Vitals: Temp Pulse Resp BP Pulse Ox 98.7 F 76 18 162/95 98 02/09/19 03:55 02/09/19 03:55 02/09/19 03:55 02/09/19 03:55 02/09/19 03:55 Results - Labs CBC & Chem 7: 02/08/19 05:25 02/08/19 05:25 Labs: Abnormal lab results 02/08/19 02/08/19 Range/Units 05:25 05:25 Hgb 11.5 L (11.8-15.2) gm/dl Hct 34.0 L (35.5-45.6) % Ponce % (Auto) 14.9 H (0.0-7.3) % Lymph # 1.0 L (1.2-5.4) K/mm3 [place]once # 1.0 H (0.0-0.8) K/mm3 Potassium 5.6 H (3.6-5.0) mmol/L Chloride 113.4 H (98-107) mmol/L Carbon Dioxide 19 L (22-30) mmol/L BUN 42 H (9-20) mg/dL Creatinine 6.2 H (0.8-1.5) mg/dL Glucose 111 H (75-100) mg/dL Assessment and Plan Urinary Retention Renal Failure DIVINA HYDRO GROSS HEMATURIA - vela catheter in draining - cr trending down - on flomax - home with vela ivabx - future repeat renal us
[2019-02-09] MEDS: NACL 0.9% 1000 ML 1,000 ML IV SCH ×2 (05:14→23:16)
[2019-02-09 06:36] LABS: Calcium 8.4 mg/dL (8.4-10.2)
--- NOTE | 2019-02-09 09:15 | Progress Note ---
Subjective Interval history: Patient was seen today for follow-up of multiple renal related issues No complaints of any chest pain pressure or shortness of breath creatinine is improving Potassium is better Interdisciplinary notes that also reviewed Events of 24 hours vitals labs intake output medications were reviewed Past medical history: Reviewed Family history: Reviewed Social history: Reviewed Allergies: Reviewed Physical examination: Vitals: Reviewed HEENT: No pallor or icterus oral mucosa moist Neck: Supple no JVD no thyromegaly Chest: Bilateral clear to auscultation anteriorly Heart: Regular rate and rhythm S1-S2 heard no S3-S4 Abdomen: Soft nontender no voluntary guarding rigidity rebound Extremity: Dry skin less than 1+ peripheral edema Psychiatric: No evidence of agitation and aggression noted Dermatology: No petechial rashes Labs and x-rays: Reviewed from today Assessment and plan Acute renal failure mostly resulting from obstructive uropathy, renal function continues to improve patient has been advised to increase his oral hydration Metabolic acidosis currently improving bicarbonate is currently 20 Hyperkalemia: Has improved current bicarbonate 4.8 Continue with supportive care monitoring of renal function Will need to make an appointment upon discharge for follow-up in the office All renal related questions have been answered Remarkable improvement in renal function continue with Chilel catheter placement, Urinalysis shows low-grade pyuria hematuria large amount of blood and less than 15 mg protein in the urine Left perinephric retroperitoneal stranding likely resulting from obstructive uropathy,? Infection pyelonephritis CT scan obtained today shows evidence of bilateral hydronephrosis essentially unchanged bladder is decompressed Prostate is moderately enlarged Mild thickening of the adrenal gland will need follow-up in outpatient setting Patient was adequately counseled and educated regarding all the renal related issues Laboratory studies, pertinent for discussed with patient All questions were answered and simple [place] We'll continue to follow and make recommendation for renal standpoint Objective - Vital Signs Vital signs: Vital Signs - 12hr 02/08/19 02/09/19 02/09/19 23:37 03:55 08:12 Temperature 99.5 F 98.7 F 99.6 F Pulse Rate 71 76 93 H Respiratory 18 18 18 Rate Blood Pressure 164/92 162/95 153/80 O2 Sat by Pulse 100 98 94 Oximetry - Lab 02/08/19 05:25 02/09/19 04:45 Most recent lab results Calcium 8.4 mg/dL (8.4-10.2) 02/09/19 04:45 Medications & Allergies - Medications Allergies/Adverse Reactions: Allergies No Known Allergies Allergy (Verified 05/04/17 22:09) Home Medications: Home Medications Medication Instructions Recorded Confirmed Last Taken Type Tamsulosin [Flomax] 1 tab PO DAILY 02/07/19 02/07/19 Unknown History Active Medications: Generic Name Dose Route Start Last Admin Trade Name Freq PRN Reason Stop Dose Admin Acetaminophen 650 mg 02/07/19 02:39 Tylenol PO Q4H PRN Pain MILD(1-3)/Fever >100.5/STEARNS Amlodipine Besylate 10 mg 02/08/19 10:00 02/08/19 09:09 Norvasc PO 10 mg QDAY DYLAN Administration Enoxaparin Sodium 30 mg 02/07/19 10:00 02/08/19 09:08 Lovenox SUB-Q 30 mg QDAY DYLAN Administration Finasteride 5 mg 02/07/19 15:00 02/08/19 09:09 Proscar PO 5 mg QDAY DYLAN Administration Hydralazine HCl 10 mg 02/07/19 02:50 02/09/19 03:59 Apresoline IV 10 mg Q4HR PRN Administration Blood Pressure Sodium Chloride 1,000 mls @ 125 mls/hr 02/07/19 05:00 02/09/19 05:14 Nacl 0.9% 1000 Ml IV 125 mls/hr DIRECT DYLAN Administration Ceftriaxone Sodium 1 gm in 50 mls @ 100 mls/hr 02/07/19 10:00 02/08/19 09:14 Rocephin/Ns 1 Gm/50 Ml IV 100 mls/hr Q24HR DYLAN Administration Protocol Metoprolol Tartrate 50 mg 02/07/19 22:00 02/08/19 21:40 Lopressor PO 50 mg BID DYLAN Administration Morphine Sulfate 2 mg 02/07/19 02:39 Morphine IV Q4H PRN Pain, Moderate (4-6) Ondansetron HCl 4 mg 02/07/19 02:39 Zofran IV Q6H PRN Nausea And Vomiting Sodium Bicarbonate 1,300 mg 02/07/19 10:00 02/08/19 21:40 Sodium Bicarbonate PO 1,300 mg BID DYLAN Administration Sodium Chloride 10 ml 02/07/19 10:00 02/08/19 21:40 Sodium Chloride Flush Syringe 10 Ml IV 10 ml BID DYLAN Administration Sodium Chloride 10 ml 02/07/19 02:39 Sodium Chloride Flush Syringe 10 Ml IV PRN PRN LINE FLUSH Tamsulosin HCl 0.4 mg 02/07/19 10:00 02/08/19 09:09 Flomax PO 0.4 mg DAILY DYLAN Administration
[2019-02-09] MEDS: NORVASC PO SCH (10:05)
[2019-02-09] MEDS: ROCEPHIN/NS 1 GM/50 ML 1 GM/50 ML BAG IV SCH (10:05)
[2019-02-09] MEDS: FLOMAX PO SCH (10:06)
[2019-02-09] MEDS: LOPRESSOR PO SCH ×3 (10:06→22:38)
[2019-02-09] MEDS: SODIUM BICARBONATE PO SCH ×2 (10:06→22:39)
[2019-02-09] MEDS: PROSCAR PO SCH (10:06)
[2019-02-09] MEDS: LOVENOX SUB-Q SCH (10:06)
[2019-02-09] MEDS: SODIUM CHLORIDE FLUSH SYRINGE 10 ML IV SCH ×2 (10:07→22:40)
[2019-02-09] MEDS ORDERED: LOPRESSOR PO SCH (14:59)
--- NOTE | 2019-02-09 17:37 | Progress Note ---
Assessment and Plan Hematuria, continue to monitor - Follow H&H, follow urology recommendation - stop heparin product Urinary retention - Due to BPH with urinary bladder outlet obstruction -CT Abdomen/Pelvis shows: Pandiverticulosis. Left perinephric retroperitoneal stranding may be on the basis of the hydronephrosis or possible nephritis/pyelonephritis. -S/P prostate biopsy last week -Chilel placed, patient also on Flomax -Continue supportive care and monitor urine output -Urology consulted - recommended to continue current management Bilateral hydronephrosis -Seen on CT Abdomen/Pelvis -Likely secondary to urinary obstruction/attention -Urology consulted -medical management for now with Chilel ANAI, due to obstructive nephropathy - renal function improving ?? Superimposed chronic kidney disease -Cr on admission 14.4 -Avoid nephrotoxin agents -Renal dose all meds -Nephrology consulted - Continue IV fluids and monitor renal function Hypertensive urgency -BP on admission 202/106 -Hx Hypertension -Continue to monitor BP -Started on Norvasc and metoprolol, IV antihypertensive when necessary - Continue to adjust medications as needed Hyponatremia -likely pseudohyponatremia secondary to volume overload -Mild -Continue to monitor for now DVT PPX -on Lovenox Disposition: Home when renal function stabilizes and blood pressure improves Brief History: 63-year-old [place] male with history of hypertension and BPH S/P prostate biopsy (02/02/19) who presents to [facility] ED with complaints of progressively worsening suprapubic pressure and urinary retention for the past day. Radiological data: Chest x-ray: No acute findings Abdomen pelvis CT: Moderate bilateral hydronephrosis is essentially unchanged since yesterday's exam. The bladder is decompressed on today's exam and demonstrates diffuse wall thickening. Enlarged prostate. No obvious obstructing lesion in the distal ur eters is demonstrated on noncontrast CT. Mild cardiomegaly. Hospitalist Physical exam: GENERAL: well-developed and well-nourished AAM lying on bed appeared to be in no discomfort. HEENT: Normocephalic. Atraumatic. No conjunctival congestion or icterus. Patient has moist mucous membranes. NECK: Supple. Trachea midline. CHEST/LUNGS: Clear to auscultated bilaterally, breathing nonlabored. No wheezes crackles or rhonchi. HEART/CARDIOVASCULAR: Regular in rate and rhythm. S1 and S2 positive. ABDOMEN: Abdomen is soft, nontender. Patient has normal bowel sounds. SKIN: There is no rash. Warm and dry. NEURO: No focal motor deficit. Follows command. MUSCULOSKELETAL: No joint effusion or tenderness. EXTRIMITY: No edema, no cyanosis or clubbing. PSYCH: Cooperative. Subjective Date of service: 02/09/19 Interval history: Patient seen and examined. Medical records and medication list reviewed. No acute event overnight noted by the RN. Patient denies any chest pain or difficulty breathing. Patient is tolerating diet. Discussed plan of care at bedside with patient. cont to have gross hematuria, Cr 3.5 today Objective - Constitutional Vitals: Vital Signs - 12hr 02/09/19 02/09/19 02/09/19 08:12 10:05 10:06 Temperature 99.6 F Pulse Rate 93 H Respiratory 18 Rate Blood Pressure 153/80 153/80 153/80 O2 Sat by Pulse 94 Oximetry 02/09/19 02/09/19 11:38 16:23 Temperature 98.8 F Pulse Rate 68 Respiratory 18 Rate Blood Pressure 121/73 121/73 O2 Sat by Pulse 96 Oximetry - Labs CBC & Chem 7: 02/10/19 06:57 02/10/19 06:57 Labs: Abnormal lab results 02/09/19 Range/Units 04:45 Chloride 112.9 H (98-107) mmol/L Carbon Dioxide 20 L (22-30) mmol/L BUN 28 H (9-20) mg/dL Creatinine 3.4 H (0.8-1.5) mg/dL
--- NOTE | 2019-02-09 19:59 | Progress Note ---
Assessment and Plan Urinary Retention Renal Failure DIVINA HYDRO GROSS HEMATURIA s/p PROSTATE BIOPSY - vela catheter in draining - cr trending down from 14 to 3.4 - on flomax - h/h stable - home with vela ivabx - future repeat renal us Subjective Date of service: 02/09/19 Interval history: pt w/o complaints. minor cath discomfort Objective - Constitutional Vitals: Vital Signs - 12hr 02/09/19 02/09/19 02/09/19 08:12 10:05 10:06 Temperature 99.6 F Pulse Rate 93 H Respiratory 18 Rate Blood Pressure 153/80 153/80 153/80 O2 Sat by Pulse 94 Oximetry 02/09/19 02/09/19 11:38 16:23 Temperature 98.8 F Pulse Rate 68 Respiratory 18 Rate Blood Pressure 121/73 121/73 O2 Sat by Pulse 96 Oximetry General appearance: Present: no acute distress - Respiratory Respiratory effort: normal - Gastrointestinal Rectal Exam: other (cath pink tinge) - Psychiatric Psychiatric: appropriate mood/affect - Labs CBC & Chem 7: 02/08/19 05:25 02/09/19 04:45 Labs: Abnormal lab results 02/09/19 Range/Units 04:45 Chloride 112.9 H (98-107) mmol/L Carbon Dioxide 20 L (22-30) mmol/L BUN 28 H (9-20) mg/dL Creatinine 3.4 H (0.8-1.5) mg/dL Medications & Allergies - Medications Allergies/Adverse Reactions: Allergies No Known Allergies Allergy (Verified 05/04/17 22:09) Home Medications: Home Medications Medication Instructions Recorded Confirmed Last Taken Type Tamsulosin [Flomax] 1 tab PO DAILY 02/07/19 02/07/19 Unknown History Active Medications: Generic Name Dose Route Start Last Admin Trade Name Freq PRN Reason Stop Dose Admin Acetaminophen 650 mg 02/07/19 02:39 Tylenol PO Q4H PRN Pain MILD(1-3)/Fever >100.5/STEARNS Amlodipine Besylate 10 mg 02/08/19 10:00 02/09/19 10:05 Norvasc PO 10 mg QDAY DYLAN Administration Enoxaparin Sodium 30 mg 02/07/19 10:00 02/09/19 10:06 Lovenox SUB-Q 30 mg QDAY DYLAN Administration Finasteride 5 mg 02/07/19 15:00 02/09/19 10:06 Proscar PO 5 mg QDAY YDLAN Administration Hydralazine HCl 10 mg 02/07/19 02:50 02/09/19 03:59 Apresoline IV 10 mg Q4HR PRN Administration Blood Pressure Sodium Chloride 1,000 mls @ 125 mls/hr 02/07/19 05:00 02/09/19 05:14 Nacl 0.9% 1000 Ml IV 125 mls/hr DIRECT DYLAN Administration Ceftriaxone Sodium 1 gm in 50 mls @ 100 mls/hr 02/07/19 10:00 02/09/19 10:05 Rocephin/Ns 1 Gm/50 Ml IV 100 mls/hr Q24HR DYLAN Administration Protocol Metoprolol Tartrate 100 mg 02/09/19 15:00 02/09/19 16:23 Lopressor PO 100 mg BID DYLAN Administration Morphine Sulfate 2 mg 02/07/19 02:39 Morphine IV Q4H PRN Pain, Moderate (4-6) Ondansetron HCl 4 mg 02/07/19 02:39 Zofran IV Q6H PRN Nausea And Vomiting Sodium Bicarbonate 1,300 mg 02/07/19 10:00 02/09/19 10:06 Sodium Bicarbonate PO 1,300 mg BID DYLAN Administration Sodium Chloride 10 ml 02/07/19 10:00 02/09/19 10:07 Sodium Chloride Flush Syringe 10 Ml IV 10 ml BID DYLAN Administration Sodium Chloride 10 ml 02/07/19 02:39 Sodium Chloride Flush Syringe 10 Ml IV PRN PRN LINE FLUSH Tamsulosin HCl 0.4 mg 02/07/19 10:00 02/09/19 10:06 Flomax PO 0.4 mg DAILY DYLAN Administration
--- NOTE | 2019-02-09 20:01 | Event Note ---
Date: 02/08/19 pt w/o compl some improvement w/ hematuria
[2019-02-10 08:06] LABS: Basophils % (Auto) 0.6 % (0.0-1.8); Eosinophils # (Auto) 0.2 K/mm3 (0.0-0.4); Eosinophils % (Auto) 3.1 % (0.0-4.3); Hematocrit 32.5 % (35.5-45.6); Hemoglobin 10.8 gm/dl (11.8-15.2); Lymphocytes # (Auto) 1.8 K/mm3 (1.2-5.4); Lymphocytes % (Auto) 23.7 % (13.4-35.0); Mean Corpuscular HGB Conc 33 % (32-34); Mean Corpuscular Volume 93 fl (84-94); Monocytes % (Auto) 13.2 % (0.0-7.3); Platelet Count 211 K/mm3 (140-440); Red Blood Count 3.51 M/mm3 (3.65-5.03); Red Cell Distribution Width 14.8 % (13.2-15.2)
[2019-02-10 08:24] LABS: Calcium 8.2 mg/dL (8.4-10.2)
[2019-02-10] MEDS: PROSCAR PO SCH (11:19)
[2019-02-10] MEDS: NORVASC PO SCH (11:19)
[2019-02-10] MEDS: LOVENOX SUB-Q SCH (11:20)
[2019-02-10] MEDS: SODIUM BICARBONATE PO SCH (11:20)
[2019-02-10] MEDS: LOPRESSOR PO SCH (11:20)
[2019-02-10] MEDS: FLOMAX PO SCH (11:20)
[2019-02-10] MEDS: ROCEPHIN/NS 1 GM/50 ML 1 GM/50 ML BAG IV SCH (11:23)
[2019-02-10] MEDS: SODIUM CHLORIDE FLUSH SYRINGE 10 ML IV SCH (11:33)
--- NOTE | 2019-02-10 12:23 | Progress Note ---
Assessment and Plan improved home with catheter path benign needs f/u may need turp Subjective Date of service: 02/10/19 Principal diagnosis: retention Objective - Constitutional Vitals: Vital Signs - 12hr 02/10/19 02/10/19 02/10/19 03:00 04:24 07:40 Temperature 98.0 F 100.0 F H Pulse Rate 77 77 74 Respiratory 18 18 Rate Blood Pressure 145/89 148/90 O2 Sat by Pulse 98 97 Oximetry 02/10/19 02/10/19 02/10/19 11:18 11:19 11:20 Temperature 98.8 F Pulse Rate 74 74 Respiratory Rate Blood Pressure 148/90 148/90 O2 Sat by Pulse Oximetry General appearance: Present: no acute distress - Neck Neck: supple - Respiratory Respiratory effort: normal - Gastrointestinal General gastrointestinal: Present: soft, non-tender - Labs CBC & Chem 7: 02/10/19 06:57 02/10/19 06:57 Labs: Abnormal lab results 02/10/19 02/10/19 Range/Units 06:57 06:57 RBC 3.51 L (3.65-5.03) M/mm3 Hgb 10.8 L (11.8-15.2) gm/dl Hct 32.5 L (35.5-45.6) % [place] % (Auto) 13.2 H (0.0-7.3) % [place] # 1.0 H (0.0-0.8) K/mm3 Chloride 111.1 H (98-107) mmol/L Carbon Dioxide 21 L (22-30) mmol/L BUN 24 H (9-20) mg/dL Creatinine 2.4 H (0.8-1.5) mg/dL Calcium 8.2 L (8.4-10.2) mg/dL Medications & Allergies - Medications Allergies/Adverse Reactions: Allergies No Known Allergies Allergy (Verified 05/04/17 22:09) Home Medications: Home Medications Medication Instructions Recorded Confirmed Last Taken Type Tamsulosin [Flomax] 1 tab PO DAILY 02/07/19 02/07/19 Unknown History Active Medications: Generic Name Dose Route Start Last Admin Trade Name Freq PRN Reason Stop Dose Admin Acetaminophen 650 mg 02/07/19 02:39 Tylenol PO Q4H PRN Pain MILD(1-3)/Fever >100.5/STEARNS Amlodipine Besylate 10 mg 02/08/19 10:00 02/10/19 11:19 Norvasc PO 10 mg QDAY DYLAN Administration Finasteride 5 mg 02/07/19 15:00 02/10/19 11:19 Proscar PO 5 mg QDAY DYLAN Administration Hydralazine HCl 10 mg 02/07/19 02:50 02/09/19 03:59 Apresoline IV 10 mg Q4HR PRN Administration Blood Pressure Sodium Chloride 1,000 mls @ 125 mls/hr 02/07/19 05:00 02/09/19 23:16 Nacl 0.9% 1000 Ml IV 125 mls/hr DIRECT DYLAN Administration Ceftriaxone Sodium 1 gm in 50 mls @ 100 mls/hr 02/07/19 10:00 02/10/19 11:23 Rocephin/Ns 1 Gm/50 Ml IV 100 mls/hr Q24HR DYLAN Administration Protocol Metoprolol Tartrate 100 mg 02/09/19 15:00 02/10/19 11:20 Lopressor PO 100 mg BID DYLAN Administration Morphine Sulfate 2 mg 02/07/19 02:39 Morphine IV Q4H PRN Pain, Moderate (4-6) Ondansetron HCl 4 mg 02/07/19 02:39 Zofran IV Q6H PRN Nausea And Vomiting Sodium Bicarbonate 1,300 mg 02/07/19 10:00 02/10/19 11:20 Sodium Bicarbonate PO 1,300 mg BID DYLAN Administration Sodium Chloride 10 ml 02/07/19 10:00 02/10/19 11:33 Sodium Chloride Flush Syringe 10 Ml IV 10 ml BID DYLAN Administration Sodium Chloride 10 ml 02/07/19 02:39 Sodium Chloride Flush Syringe 10 Ml IV PRN PRN LINE FLUSH Tamsulosin HCl 0.4 mg 02/07/19 10:00 02/10/19 11:20 Flomax PO 0.4 mg DAILY DYLAN Administration
[2019-02-10] MEDS: NACL 0.9% 1000 ML 1,000 ML IV SCH (15:26)
--- NOTE | 2019-02-10 15:27 | Discharge Summary ---
Providers - Providers Date of Admission: 02/07/19 02:39 Date of discharge: 02/10/19 Attending physician: MARGARITO TIJERINA 02/07/19 02:10 Consult to Physician [CONS] Stat Comment: Consulting Provider: LIBAN TAYLOR Physician Instructions: Admit to Hospitalist Reason For Exam: Acute Urinary Retention; Acute renal Failure 02/07/19 02:39 Consult to Physician [CONS] Routine Comment: Consulting Provider: MACKENZIE YIN Physician Instructions: Reason For Exam: anai Primary care physician: MAKENNA GALLAGHER Hospitalization Condition: Stable Pertinent studies: CXR CT abdomen/pelvis Hospital course: 63-year-old [place] male with history of hypertension and BPH S/P prostate biopsy (02/02/19) who presents to [facility] ED with complaints of progressively worsening suprapubic pressure and urinary retention for one day. He was placed on vela in the ER and admitted for urinary retention and Cr of 14.4 Radiological data: Chest x-ray: No acute findings Abdomen pelvis CT: Moderate bilateral hydronephrosis is essentially unchanged since yesterday's exam. The bladder is decompressed on today's exam and demonstrates diffuse wall thickening. Enlarged prostate. No obvious obstructing lesion in the distal ureters is demonstrated on noncontrast CT. Mild cardiomegaly. Discharge diagnosis and Mx: Urinary retention - Due to BPH with urinary bladder outlet obstruction -CT Abdomen/Pelvis shows: Pandiverticulosis. Left perinephric retroperitoneal stranding may be on the basis of the hydronephrosis or possible nephritis/pyelonephritis. -S/P prostate biopsy last week -Vela placed, patient also given Flomax and proscar -Continued supportive care and monitored urine output -Urology consulted - recommended to continue current management and to discharge home with vela Bilateral hydronephrosis -Seen on CT Abdomen/Pelvis -Likely secondary to urinary obstruction/attention -Urology consulted -medical management for now with Vela - will continue outpt f/u ANAI, due to obstructive nephropathy - renal function improving Cr 2.4 today ?? Superimposed chronic kidney disease -Cr on admission was 14.4 -Avoid nephrotoxin agents -Renal dose all meds -Nephrology consulted - renal function improved with vela, iv fluid Gross Hematuria, resolved - Followed H&H, - stopped heparin product - outpt f/u per urology recommendation Hypertensive urgency -BP on admission 202/106 -Hx Hypertension -Continue to monitor BP -Started on Norvasc and metoprolol, IV antihypertensive when necessary - Adjusted medications as needed for better control BP Hyponatremia -likely pseudohyponatremia secondary to volume overload -Mild -improved with Iv fluid DVT PPX -on Lovenox Disposition: Home with vela with outpt Urology f/u Hospitalist Physical exam: GENERAL: well-developed and well-nourished AAM lying on bed appeared to be in no discomfort. HEENT: Normocephalic. Atraumatic. No conjunctival congestion or icterus. Patient has moist mucous membranes. NECK: Supple. Trachea midline. CHEST/LUNGS: Clear to auscultated bilaterally, breathing nonlabored. No wheezes crackles or rhonchi. HEART/CARDIOVASCULAR: Regular in rate and rhythm. S1 and S2 positive. ABDOMEN: Abdomen is soft, nontender. Patient has normal bowel sounds. SKIN: There is no rash. Warm and dry. NEURO: No focal motor deficit. Follows command. MUSCULOSKELETAL: No joint effusion or tenderness. EXTRIMITY: No edema, no cyanosis or clubbing. PSYCH: Cooperative. Disposition: [id number]/[place]-06 HOME UNDER HOME [facility] Time spent for discharge: 34 minutes Core Measure Documentation - Palliative Care Palliative Care/ Comfort Measures: Not Applicable - Core Measures Any of the following diagnoses?: none Exam - Constitutional Vitals: Temp Pulse Resp BP Pulse Ox 98.8 F 74 18 148/90 97 02/10/19 11:18 02/10/19 11:20 02/10/19 07:40 02/10/19 11:20 02/10/19 07:40 Plan Activity: advance as tolerated Weight Bearing Status: Non-Weight Bearing Diet: low fat, low salt Wound: drain care as instructed Special Instructions: record daily BP diary Additional Instructions: Repeat CBC in one week. F/u with Urology in one week Follow up with: PRIMARY CAREMD [Referring] - 3-5 Days MARK OLIVAREZ MD [Staff Physician] - 7 Days ROSE DEL REAL MD [Staff Physician] - 7 Days Prescriptions: Metoprolol [Lopressor TAB] 100 mg PO BID #60 tablet amLODIPine [Norvasc] 10 mg PO QDAY #30 tablet Finasteride [Proscar] 5 mg PO QDAY #30 tablet
[2019-02-10 18:13] VITALS: BP 132/79
== END 2019-02-10 19:00 | disposition home health service (06) | DRG 725 ==
LOC: ED 23:49 → 4A 02-07 02:39
PROVIDERS: ADMIT Internal Medicine; ATTEND Internal Medicine
DX: N40.1 Benign prostatic hyperplasia with lower urinary tract symptoms (principal); N17.0 Acute kidney failure with tubular necrosis; E87.1 Hypo-osmolality and hyponatremia; N13.30 Unspecified hydronephrosis; E87.2 Acidosis; I16.1 Hypertensive emergency; I10 Essential (primary) hypertension; R33.8 Other retention of urine; R31.0 Gross hematuria; N32.0 Bladder-neck obstruction; N05.9 Unspecified nephritic syndrome with unspecified morphologic changes; E87.70 Fluid overload, unspecified; E87.5 Hyperkalemia; Z79.899 Other long term (current) drug therapy
CPT/HCPCS: 36415; 71045; 74176; 80048; 80053; 81001; 85025; 93005; 93010; 93306; 96360; G0378; J0360; J0696; J1650; J7030

== ENCOUNTER 2019-04-19 06:15 | Observation (INO) | payer MEDICARE ==
[2019-04-14 10:30] LABS: Basophils # (Auto) 0.1 K/mm3 (0.0-0.1); Basophils % (Auto) 1.2 % (0.0-1.8); Eosinophils # (Auto) 0.1 K/mm3 (0.0-0.4); Eosinophils % (Auto) 1.6 % (0.0-4.3); Hematocrit 25.6 % (35.5-45.6); Hemoglobin 8.6 gm/dl (11.8-15.2); Lymphocytes # (Auto) 1.7 K/mm3 (1.2-5.4); Lymphocytes % (Auto) 20.6 % (13.4-35.0); Mean Corpuscular HGB Conc 34 % (32-34); Mean Corpuscular Volume 95 fl (84-94); Monocytes # (Auto) 0.8 K/mm3 (0.0-0.8); Monocytes % (Auto) 10.5 % (0.0-7.3); Platelet Count 306 K/mm3 (140-440); Red Blood Count 2.68 M/mm3 (3.65-5.03); Red Cell Distribution Width 15.3 % (13.2-15.2)
[2019-04-14 10:45] LABS: Albumin 3.6 g/dL (3.9-5); Calcium 8.8 mg/dL (8.4-10.2)
--- NOTE | 2019-04-14 11:02 | Anesthesia Consultation ---
Anesthesia Consult and Med Hx Date of service: 04/14/19 - Airway Anesthetic Teeth Evaluation: Good ROM Head & Neck: Adequate Mental/Hyoid Distance: Adequate Mallampati Class: Class II Intubation Access Assessment: Good - Pulmonary Exam CTA: Yes - Cardiac Exam Cardiac Exam: RRR - Pre-Operative Health Status ASA Pre-Surgery Classification: ASA2 Proposed Anesthetic Plan: General - Pulmonary Hx Smoking: Yes (STOPPED X 3 MONTHS) Hx Sleep Apnea: No (CARLOS PRE SCREEN HIGH RISK.) - Cardiovascular System Hx Hypertension: Yes (PT TOOK SELF OFF MEDS-STATES HBP DUE TO RETENTION ONLY.) - Other Systems Hx Cancer: No
[~2019-04-19 06:15] MED LIST: LACTATED RINGERS 1,000 ML IV SCH; MIDAZOLAM 2 MG/2 ML INJ IV NR
[2019-04-19] MEDS ORDERED: BACTERIOSTATIC SODIUM CHLORIDE 0.9% 30 ML VIAL INFILTRATI ONE (06:48)
--- NOTE | 2019-04-19 07:26 | Anesthesia Day of Surgery ---
Anesthesia Day of Surgery - Day of Surgery Patient Examined: Yes Patient H&P Reviewed: Yes Patient is NPO: Yes
[2019-04-19] MEDS ORDERED: PROPOFOL 200 MG/20 ML VIAL IV ONE (07:38)
[2019-04-19] MEDS ORDERED: LIDOCAINE MPF (2%) 20 MG/1 ML VIAL 5 ML ONE (07:39)
[2019-04-19] MEDS ORDERED: MIDAZOLAM 2 MG/2 ML INJ IV NR (08:00)
[2019-04-19] MEDS ORDERED: ceFAZolin/Water 2 GM/20 ML 2 GM/20 ML SYRINGE IV ONE (08:07)
[2019-04-19] MEDS ORDERED: ceFAZolin/Water 2 GM/20 ML 2 GM/20 ML SYRINGE IV NR (08:08)
[2019-04-19] MEDS ORDERED: SODIUM CHLORIDE 0.9% IRRIG SOLN 3000 ML IR ONE (08:20)
[2019-04-19] MEDS ORDERED: WATER FOR IRRIG STERILE 1,500 ML BOTTLE IR ONE (08:20)
[2019-04-19] MEDS ORDERED: WATER FOR IRRIG STERILE 2000 ML IR ONE (08:20)
[2019-04-19] MEDS ORDERED: ACETAMINOPHEN 325 MG TAB PO PRN (08:29)
[2019-04-19] MEDS ORDERED: ONDANSETRON 4 MG ODT TAB PO PRN (08:29)
--- NOTE | 2019-04-19 08:29 | Post Operative Note ---
Date of procedure: 04/19/19 Pre-op diagnosis: bladder mass retention Post-op diagnosis: same Findings: as above Procedure: cysto biopsies Anesthesia: GETA Surgeon: LIBAN TAYLOR Estimated blood loss: 50-100ml Pathology: list (bladder prostate) Specimen disposition: to lab Condition: stable Disposition: PACU
[2019-04-19] MEDS ORDERED: D5W/0.45% NACL/KCL 20 MEQ 20 MEQ/1,000 ML BAG IV SCH (09:00)
[2019-04-19] MEDS ORDERED: PHENYLEPHRINE/NS 1,000 MCG/10 ML SYRINGE (OR USE) IV ONE (09:13)
[2019-04-19] MEDS ORDERED: oxyCODONE /ACETAMINOPHEN 5-325MG TAB PO PRN (09:30)
[2019-04-19] MEDS ORDERED: ONDANSETRON 4 MG/2 ML INJ ONE (09:49)
[2019-04-19] MEDS ORDERED: SUCCINYLCHOLINE CHLORIDE 200 MG/10 ML INJ MDV ONE (09:49)
[2019-04-19] MEDS ORDERED: dexAMETHasone 20 MG/5 ML VIAL ONE (09:50)
[2019-04-19] MEDS ORDERED: LACTATED RINGERS 1,000 ML ONE (09:53)
--- NOTE | 2019-04-19 10:09 | Operative Report ---
The patient is a 63-year-old gentleman who presents with urinary retention, renal failure. All options were discussed. He had inflammatory changes from catheters in the bladder. He now presents for treatment. All risks and implications discussed. DESCRIPTION OF PROCEDURE: The patient was brought to the operating room and placed on the operating table. Following induction of anesthesia, he was placed in lithotomy position, prepped and draped in usual sterile fashion. There was significant inflammation in the prostatic urethra towards the bladder neck. This will be resected with the specimen, severe moderate trabeculation. The inflammatory changes in bladder were markedly improved. There were areas of cystitis cystica along the trigone. Bladder was 2+ trabeculated. At this point, the resection of middle lobe and lateral lobes were carried out first on the right and then on the left. The bladder neck was now wide open and we resected just to the verumontanum. The patient tolerated the procedure well. Hemostasis was good. Estimated blood loss was 50 mL. Hemostasis was obtained. We used the bipolar. We used the loop and the button. No significant complication. All the chips were evacuated out with the Kobo evacuator. A 24 three-way was placed in the bladder. The bladder was a little bit like a Rob tree, trabeculated on cystogram. Catheter was in good position, irrigated clear. Zelaya drip was started. He was brought to recovery in stable condition. JOB# [id number] MARTA/DEMI
--- NOTE | 2019-04-19 10:28 | Fluoroscopy Report ---
Fluoroscopy cystogram static HISTORY: Enlarged prostate, urinary retention FINDINGS: 0.1 minutes of fluoroscopy time was provided by radiology during cystogram by the urologist . 3 fluoroscopic images are presented. The images demonstrate a [place] catheter in position and a smal l amount of contrast agent within the bladder. There is no obvious extravasation or mass. Please jose elate with the procedural report as needed. Signer Name: Brendon Becker Jr, MD Signed: 04/19/2019 10:24 AM Workstation Name: [id number]
[2019-04-19] MEDS: fentaNYL 100 MCG/2 ML INJ IV PRN ×2 (10:30→10:40)
[2019-04-19] MEDS: ceFAZolin/NS 1 GM/50 ML 1 GM/50 ML BAG IV SCH ×2 (16:29→21:47)
[2019-04-19] MEDS: SODIUM CHLORIDE 0.9% IRRIG SOLN 2000 ML IR SCH ×7 (16:35→22:34)
[2019-04-19] MEDS ORDERED: TAMSULOSIN 0.4 MG CAP PO SCH (18:00)
[2019-04-19] MEDS: DOCUSATE SODIUM 100 MG CAP PO SCH ×2 (19:50→21:47)
[2019-04-19] MEDS ORDERED: ZOLPIDEM 5 MG TAB PO PRN (22:00)
--- NOTE | 2019-04-19 22:44 | Post Anesthesia Evaluation ---
- Post Anesthesia Evaluation Patient Participated: Yes Airway Patent: Yes Stable Respiratory Function: Yes Nausea/Vomiting: No Temp > 96.8F: Yes Pain Manageable: Yes Adequeate Hydration: Yes Anesthesia Complications: No Block Receding Appropriately: Not Applicable Patient on Ventilator: No
[2019-04-20] MEDS: SODIUM CHLORIDE 0.9% IRRIG SOLN 2000 ML IR SCH ×2 (03:08→03:11)
[2019-04-20] MEDS: ceFAZolin/NS 1 GM/50 ML 1 GM/50 ML BAG IV SCH ×2 (05:05→13:07)
[2019-04-20] MEDS: DOCUSATE SODIUM 100 MG CAP PO SCH (09:44)
[2019-04-20 10:32] LABS: Basophils % (Auto) 0.4 % (0.0-1.8); Eosinophils % (Auto) 0.1 % (0.0-4.3); Hematocrit 25.6 % (35.5-45.6); Hemoglobin 8.5 gm/dl (11.8-15.2); Lymphocytes # (Auto) 1.7 K/mm3 (1.2-5.4); Lymphocytes % (Auto) 22.1 % (13.4-35.0); Mean Corpuscular HGB Conc 33 % (32-34); Mean Corpuscular Volume 95 fl (84-94); Monocytes # (Auto) 0.7 K/mm3 (0.0-0.8); Monocytes % (Auto) 9.5 % (0.0-7.3); Platelet Count 243 K/mm3 (140-440); Red Blood Count 2.69 M/mm3 (3.65-5.03)
[2019-04-20 10:56] LABS: Calcium 8.8 mg/dL (8.4-10.2)
[2019-04-20] MEDS ORDERED: FLU VACC QUAD 2019-20 (3 YR UP)/PF 60 MCG/0.5 ML SYRINGE IM ONE (12:00)
[2019-04-20] MEDS ORDERED: PNEUMOCOCCAL 23 Valent 0.5 ML VIAL IM ONE (12:00)
[2019-04-20 12:39] VITALS: BP 137/86
--- NOTE | 2019-04-20 13:49 | Progress Note ---
Assessment and Plan urine clear home with cath Subjective Date of service: 04/20/19 Principal diagnosis: AUR Objective - Constitutional Vitals: Vital Signs - 12hr 04/20/19 04/20/19 04/20/19 03:58 07:10 11:25 Temperature 98.1 F 98.8 F 98.6 F Pulse Rate 75 79 76 Respiratory 18 18 20 Rate Blood Pressure 158/91 158/92 137/86 O2 Sat by Pulse 99 98 100 Oximetry General appearance: Present: no acute distress - Neck Neck: supple - Respiratory Respiratory effort: normal Extremities: no ischemia - Gastrointestinal General gastrointestinal: Present: soft, non-tender - Labs CBC & Chem 7: 04/20/19 10:04 04/20/19 10:04 Labs: Abnormal lab results 04/20/19 04/20/19 Range/Units 10:04 10:04 RBC 2.69 L (3.65-5.03) M/mm3 Hgb 8.5 L (11.8-15.2) gm/dl Hct 25.6 L (35.5-45.6) % MCV 95 H (84-94) fl [place] % (Auto) 9.5 H (0.0-7.3) % BUN 21 H (9-20) mg/dL Creatinine 1.6 H (0.8-1.5) mg/dL Glucose 144 H (75-100) mg/dL Medications & Allergies - Medications Allergies/Adverse Reactions: Allergies No Known Allergies Allergy (Verified 05/04/17 22:09) Home Medications: Home Medications Medication Instructions Recorded Confirmed Last Taken Type No Known Home Medications [No 04/12/19 04/12/19 Unknown History Reported Home Medications] Active Medications: Generic Name Dose Route Start Last Admin Trade Name Freq PRN Reason Stop Dose Admin Acetaminophen 650 mg 04/19/19 08:29 Tylenol PO Q4H PRN Pain, Mild (1-3)/Fever > 100.5 Docusate Sodium 100 mg 04/19/19 10:00 04/20/19 09:44 Colace PO 100 mg BID DYLAN Administration Potassium Chloride/Dextrose/Sod Cl 20 meq in 1,000 mls @ 100 mls/hr 04/19/19 09:00 04/20/19 03:11 D5w/0.45% Nacl/Kcl 20 Meq IV 100 mls/hr DIRECT DYLAN Administration Cefazolin Sodium 1 gm in 50 mls @ 100 mls/hr 04/19/19 14:00 04/20/19 13:07 Ancef/Ns 1 Gm/50 Ml IV 04/20/19 14:29 100 mls/hr Q8HR DYLAN Administration Protocol Ondansetron HCl 4 mg 04/19/19 08:29 Zofran Odt PO Q8H PRN Nausea And Vomiting Oxycodone/Acetaminophen 2 tab 04/19/19 09:30 Percocet 5/325 PO Q6H PRN Pain, Moderate (4-6) Sodium Chloride 2,000 ml 04/19/19 09:00 04/20/19 03:11 Nacl 0.9% IR 2,000 ml DIRECT DYLAN Administration Tamsulosin HCl 0.4 mg 04/19/19 18:00 04/19/19 17:36 Flomax PO 0.4 mg QPM DYLAN Administration Zolpidem Tartrate 5 mg 04/19/19 22:00 Ambien PO QHS PRN Sleep
--- NOTE | 2019-04-20 13:50 | Discharge Summary ---
Short Stay Discharge Plan Activity: other (no straining ) Weight Bearing Status: Full Weight Bearing Diet: low fat, low cholesterol, low salt Special Instructions: other (inc fluids ) Durable Medical Equipment Needed Upon Discharge: other (vela care ) Follow up with: MAKENNA GALLAGHER MD [Primary Care Provider] - 7 Days LIBAN TAYLOR MD [Staff Physician] - 04/22/19
== END 2019-04-20 15:52 | disposition home or self-care (01) ==
LOC: OR 06:15 → 3B-SURG 08:29
PROVIDERS: ADMIT Urology; ATTEND Urology
DX: R33.9 Retention of urine, unspecified (principal); N13.30 Unspecified hydronephrosis; N40.0 Benign prostatic hyperplasia without lower urinary tract symptoms; Z23 Encounter for immunization
CPT/HCPCS: 36415; 52601; 74430; 80048; 80053; 85025; 86850; 86900; 86901; 88305; 90471; 90686; 90732; 96365; 96366; A4217; G0378; J0330; J0690; J1100; J2250; J2370; J2405; J2704; J3010; J7120; Q9967